=== PATIENT | female | born 1935 | race Caucasian/White ===

== ENCOUNTER → 2023-07-26 16:20 | Outpatient (REF) | payer MEDICARE, OTHER, SELFPAY ==
[2023-07-26 15:55] LABS: % Basophils 0.3 % (0-2); % Eosinophils 2.1 % (0-6); % Immature Granulocytes 0.5 % (0-0.5); % Lymphocytes 37.5 % (20.5-51.1); % Monocytes 10.2 % (1.7-9.3); % Neutrophils 49.4 % (42.2-75.2); Absolute Eosinophils 0.1 10^3/uL (0-0.7); Absolute Lymphocytes 2.5 10^3/uL (1.2-3.4); Absolute Monocytes 0.7 10^3/uL (0.1-0.6); Absolute Neutrophils 3.3 10^3/uL (1.4-6.5); Hemoglobin 8.5 g/dL (12.0-16.0); Mean Corp Hgb Conc. 32.7 g/dL (33.0-37.0); Mean Corpuscular Volume 97.7 fL (81.0-99.0); Mean Platelet Volume 9.5 fL (7.4-10.4); Nucleated Red Blood Cells % 0 %; Platelet Count 302 10^3/uL (130-400); Red Blood Cell Count 2.66 10^6/uL (4.20-5.40); Red Cell Dist. Width 16.7 % (11.5-14.5); White Blood Cell Count 6.6 10^3/uL (4.8-10.8)
[2023-07-26 16:08] LABS: Chloride 106 mmol/L (98-107); Sodium 137 mmol/L (135-145)
[2023-07-26 16:09] LABS: ALT (SGPT) 15 U/L (0-35); AST (SGOT) 24 U/L (14-36); Albumin 4.1 g/dl (3.5-5.0); Alkaline Phosphatase 92 U/L (38-126); Blood Urea Nitrogen 25 mg/dl (7-17); Calcium 9.4 mg/dl (8.4-10.2); Carbon Dioxide 20 mmol/L (22-30); Glucose 88 mg/dl (70-99); Iron 88 ug/dl (37-170); Total Bilirubin 0.6 mg/dl (0.2-1.3); Total Protein 8.6 g/dl (6.3-8.2); eGFR 39.31
[2023-07-26 16:18] LABS: Percent Saturation 29 % (20-50); Total Iron Binding Capacity 295 ug/dl (265-497)
[2023-07-28 19:23] LABS: Beta-2-Microglobulin 6.6 mg/L (<=3.0)
[2023-07-30 01:44] LABS: Albumin 4.12 g/dL (3.75-5.01); Alpha 1 Globulin 0.37 g/dL (0.19-0.46); Alpha 2 Globulin 0.88 g/dL (0.48-1.05); Free Kappa Light Chains,Quant 254.46 mg/L (3.30-19.40); Free Lambda Light Chains,Quant 13.27 mg/L (5.71-26.30); IgA 38 mg/dL (68-408); IgG 2722 mg/dL (768-1632); IgM 17 mg/dL (35-263); Immunofixation Electrophoresis IFE Done; Kappa/Lambda Fr Light Ratio 19.18 (0.26-1.65); Monoclonal Protein 1.84 g/dL (<=0.00); Total Protein-Electrophoresis 8.2 g/dL (6.3-8.2)
== END ==
LOC: OIDL 16:20
PROVIDERS: ATTENDING PHYSICIAN Internal Medicine Hematology & Oncology
DX: D83.9 Common variable immunodeficiency, unspecified (principal); D50.9 Iron deficiency anemia, unspecified
CPT/HCPCS: 80053; 82232; 82565; 82784; 83521; 83540; 83550; 84155; 84165; 85025; 86334

== ENCOUNTER → 2023-08-17 14:41 | Outpatient (REF) | payer MEDICARE, OTHER, SELFPAY ==
[2023-08-17 15:30] LABS: % Basophils 0.4 % (0-2); % Eosinophils 1.5 % (0-6); % Immature Granulocytes 0.3 % (0-0.5); % Lymphocytes 39.1 % (20.5-51.1); % Monocytes 10.4 % (1.7-9.3); % Neutrophils 48.3 % (42.2-75.2); Absolute Eosinophils 0.1 10^3/uL (0-0.7); Absolute Lymphocytes 2.6 10^3/uL (1.2-3.4); Absolute Monocytes 0.7 10^3/uL (0.1-0.6); Absolute Neutrophils 3.2 10^3/uL (1.4-6.5); Hematocrit 28.2 % (37.0-47.0); Mean Corp Hgb Conc. 31.9 g/dL (33.0-37.0); Mean Corpuscular Hgb 32.8 pg (27.0-31.0); Mean Corpuscular Volume 102.9 fL (81.0-99.0); Mean Platelet Volume 9.6 fL (7.4-10.4); Nucleated Red Blood Cells % 0 %; Platelet Count 319 10^3/uL (130-400); Red Blood Cell Count 2.74 10^6/uL (4.20-5.40); White Blood Cell Count 6.7 10^3/uL (4.8-10.8)
[2023-08-17 15:39] LABS: ALT (SGPT) 16 U/L (0-35); AST (SGOT) 26 U/L (14-36); Albumin 4.3 g/dl (3.5-5.0); Alkaline Phosphatase 77 U/L (38-126); Blood Urea Nitrogen 31 mg/dl (7-17); Calcium 9.2 mg/dl (8.4-10.2); Carbon Dioxide 22 mmol/L (22-30); Chloride 108 mmol/L (98-107); Glucose 93 mg/dl (70-99); Potassium 4.4 mmol/L (3.5-5.1); Sodium 135 mmol/L (135-145); Total Bilirubin 0.5 mg/dl (0.2-1.3); Total Protein 8.9 g/dl (6.3-8.2); eGFR 35.96
== END ==
LOC: REG 14:41
PROVIDERS: ATTENDING PHYSICIAN Internal Medicine Hematology & Oncology; FAMILY PHYSICIAN Student in an Organized Health Care Education/Training Program
DX: D83.9 Common variable immunodeficiency, unspecified (principal); D80.1 Nonfamilial hypogammaglobulinemia; D64.9 Anemia, unspecified; C90.00 Multiple myeloma not having achieved remission; D63.1 Anemia in chronic kidney disease; D50.9 Iron deficiency anemia, unspecified; R60.9 Edema, unspecified
CPT/HCPCS: 36415; 80053; 85025

== ENCOUNTER → 2023-08-31 14:45 | Outpatient (REF) | payer MEDICARE, OTHER, SELFPAY ==
[2023-08-31 17:28] LABS: % Basophils 0.3 % (0-2); % Eosinophils 1.6 % (0-6); % Immature Granulocytes 0.5 % (0-0.5); % Lymphocytes 39.7 % (20.5-51.1); % Monocytes 9.3 % (1.7-9.3); % Neutrophils 48.6 % (42.2-75.2); Absolute Eosinophils 0.1 10^3/uL (0-0.7); Absolute Lymphocytes 2.6 10^3/uL (1.2-3.4); Absolute Monocytes 0.6 10^3/uL (0.1-0.6); Absolute Neutrophils 3.1 10^3/uL (1.4-6.5); Hematocrit 30.6 % (37.0-47.0); Hemoglobin 9.9 g/dL (12.0-16.0); Mean Corp Hgb Conc. 32.4 g/dL (33.0-37.0); Mean Corpuscular Volume 105.2 fL (81.0-99.0); Mean Platelet Volume 9.4 fL (7.4-10.4); Nucleated Red Blood Cells % 0 %; Platelet Count 361 10^3/uL (130-400); Red Blood Cell Count 2.91 10^6/uL (4.20-5.40); Red Cell Dist. Width 18.5 % (11.5-14.5); White Blood Cell Count 6.5 10^3/uL (4.8-10.8)
[2023-08-31 17:47] LABS: ALT (SGPT) 14 U/L (0-35); AST (SGOT) 24 U/L (14-36); Albumin 4.6 g/dl (3.5-5.0); Alkaline Phosphatase 80 U/L (38-126); Blood Urea Nitrogen 34 mg/dl (7-17); Calcium 9.2 mg/dl (8.4-10.2); Carbon Dioxide 22 mmol/L (22-30); Chloride 107 mmol/L (98-107); Glucose 84 mg/dl (70-99); Potassium 4.9 mmol/L (3.5-5.1); Sodium 135 mmol/L (135-145); Total Bilirubin 0.4 mg/dl (0.2-1.3); Total Protein 9.2 g/dl (6.3-8.2)
== END ==
LOC: REG 14:45
PROVIDERS: ATTENDING PHYSICIAN Internal Medicine Hematology & Oncology; FAMILY PHYSICIAN Student in an Organized Health Care Education/Training Program
DX: D83.9 Common variable immunodeficiency, unspecified (principal); D80.1 Nonfamilial hypogammaglobulinemia; D64.9 Anemia, unspecified; C90.00 Multiple myeloma not having achieved remission; D63.1 Anemia in chronic kidney disease; D50.9 Iron deficiency anemia, unspecified; R60.9 Edema, unspecified
CPT/HCPCS: 36415; 80053; 85025

== ENCOUNTER → 2023-09-02 12:09 | Outpatient (REF) | payer MEDICARE, OTHER, SELFPAY | LOC: REG 12:09 | PROVIDERS: ATTENDING PHYSICIAN Student in an Organized Health Care Education/Training Program | DX: R19.7 Diarrhea, unspecified (principal); Z86.19 Personal history of other infectious and parasitic diseases | CPT/HCPCS: 87324; 87449 ==

== ENCOUNTER 2023-09-03 20:20 | Inpatient (IN) | payer MEDICARE, OTHER, SELFPAY ==
[2023-09-03 17:49] VITALS: BMI 25.7
[2023-09-03 17:50] VITALS: BP 173/80
[2023-09-03 18:00] VITALS: BP 169/68
[2023-09-03 18:08] LABS: % Basophils 0.5 % (0-2); % Eosinophils 1.5 % (0-6); % Immature Granulocytes 0.5 % (0-0.5); % Lymphocytes 38.2 % (20.5-51.1); % Monocytes 8.5 % (1.7-9.3); % Neutrophils 50.8 % (42.2-75.2); Absolute Eosinophils 0.1 10^3/uL (0-0.7); Absolute Lymphocytes 3.1 10^3/uL (1.2-3.4); Absolute Monocytes 0.7 10^3/uL (0.1-0.6); Absolute Neutrophils 4.1 10^3/uL (1.4-6.5); Hematocrit 28.3 % (37.0-47.0); Hemoglobin 9.1 g/dL (12.0-16.0); Mean Corp Hgb Conc. 32.2 g/dL (33.0-37.0); Mean Corpuscular Hgb 33.7 pg (27.0-31.0); Mean Corpuscular Volume 104.8 fL (81.0-99.0); Mean Platelet Volume 8.8 fL (7.4-10.4); Nucleated Red Blood Cells % 0 %; Platelet Count 286 10^3/uL (130-400); Red Cell Dist. Width 18.5 % (11.5-14.5)
[2023-09-03 18:20] LABS: ALT (SGPT) 14 U/L (0-35); AST (SGOT) 22 U/L (14-36); Albumin 4.6 g/dl (3.5-5.0); Alkaline Phosphatase 71 U/L (38-126); Blood Urea Nitrogen 38 mg/dl (7-17); Calcium 9.7 mg/dl (8.4-10.2); Carbon Dioxide 19 mmol/L (22-30); Chloride 108 mmol/L (98-107); Estimated Creatinine Clearance 22 ml/min; Glucose 112 mg/dl (70-99); Potassium 4.9 mmol/L (3.5-5.1); Sodium 133 mmol/L (135-145); Total Bilirubin 0.4 mg/dl (0.2-1.3); Total Protein 9.2 g/dl (6.3-8.2); eGFR 35.96
[2023-09-03 18:29] LABS: INR 1.29; PT 15.9 Sec (11.4-14.6)
[2023-09-03 18:31] LABS: APTT 27.7 Sec (23.4-35.0)
[2023-09-03] MEDS: MORPHINE SULFATE 2 MG IV ×2 (18:54→21:43)
--- NOTE | 2023-09-03 18:56 | ED.GENMED ---
History of Present Illness
General
Chief Complaint: Fall
Source: patient and ambulance crew
Exam Limitations: none
Time Seen by Provider: 09/03/23 17:41
Travel History
Have you had any contact with someone who has COVID-19?: No
Do you have any symptoms of coronavirus? Fever > 100 degrees, chills, cough, shortness of breath, sore throat, loss of taste or smell, muscle aches, or headache?: No
History of Present Illness
History of Present Illness:
88-year-old female presents with a fall. She states she had a mechanical fall and fell to the right side. Patient states she sort of fell out of her car. She denies head injury or neck pain. No back pain. EMS reports that shortened right lower
extremity. Patient is on Eliquis
Past History
Past History
ED Past Medical History: Arrthythmia, Cancer (Multiple myeloma), HTN and Other (Multiple myeloma, hypertension, hypothyroidism, PAF, spinal cord abscess)
ED Past Surgical History: Cardiac (Pacemaker), Orthopedic (Left hip surgery/laminectomy), Urological (Nephrectomy) and Other (Laminectomy resection of epidural abscess)
Social History
Tobacco: Non-smoker
Alcohol: None
Drug: None
Living: alone
Employment: Retired
Family History
Family History: Other (Noncontributory); Negative Diabetes, Hypertension or CAD
Phy Exam
Physical Exam
Physical Exam:
CONSTITUTIONAL Patient alert and oriented to person, place and time. Well-appearing. Vital signs reviewed.
HEAD atraumatic, normocephalic.
EYES eyelids normal to inspection, Extraocular muscles intact, Conjunctiva normal, Sclera normal.
NECK normal range of motion, Trachea midline, no jugular venous distention.
RESPIRATORY CHEST No respiratory distress noted, Chest expansion equal,.
BACK normal inspection, no obvious deformities
UPPER EXTREMITY range of motion normal, Motor strength normal, no cyanosis, no edema.
LOWER EXTREMITY unable to range her right hip. Her right lower extremity is shortened. Knee appears unaffected.
NEURO Speech normal, No focal motor deficits, Bernard coma scale 15, Memory normal, Cranial Nerves intact to screening exam.
SKIN skin warm, dry, and normal in color.
Course
Orders/Labs/Results
Orders:
Orders
09/03/23 17:51
CR Hip - RT w/wo Pel 2-3 Vw* Urgent
Comment:
Reason For Exam: fall
Include a pelvis x-ray?: Yes
09/03/23 18:00
Complete Blood Count/With Diff Urgent
Comprehensive Metabolic Panel Urgent
PTT Urgent
Prothrombin Time Urgent
09/03/23 18:14
Morphine Sulfate 2 mg .ROUTE .STK-MED ONE
09/03/23 18:50
Morphine Sulfate 2 mg IV NOW STA
Abnormal Lab Results
09/03/23
18:00
RBC 2.70 L 10^6/uL
(4.20-5.40)
Hgb 9.1 L g/dL
(12.0-16.0)
Hct 28.3 L %
(37.0-47.0)
MCV 104.8 H fL
(81.0-99.0)
MCH 33.7 H pg
(27.0-31.0)
MCHC 32.2 L g/dL
(33.0-37.0)
RDW 18.5 H %
(11.5-14.5)
Absolute Monos (auto) 0.7 H 10^3/uL
(0.1-0.6)
PT 15.9 H Sec
(11.4-14.6)
Sodium 133 L mmol/L
(135-145)
Chloride 108 H mmol/L
(98-107)
Carbon Dioxide 19 L mmol/L
(22-30)
BUN 38 H mg/dl
(7-17)
Creatinine 1.4 H mg/dL
(0.6-1.0)
Glucose 112 H mg/dl
(70-99)
Total Protein 9.2 H g/dl
(6.3-8.2)
09/03/23 18:00
09/03/23 18:00
Vital Signs
Initial and Last Documented VS:
Initial Vital Signs
Temp Pulse Resp BP Pulse Ox
97.6 F 74 16 173/80 99
09/03/23 17:50 09/03/23 17:50 09/03/23 17:50 09/03/23 17:50 09/03/23 17:50
Last Documented Vital Signs
Temp Pulse Resp BP Pulse Ox
97.6 F 74 16 173/80 99
09/03/23 17:50 09/03/23 17:50 09/03/23 17:50 09/03/23 17:50 09/03/23 17:50
MDM/Problems Addressed
MDM/Problems Addressed:
Hip fracture, therapeutic coagulopathy
*Radiology
Radiology exam reviewed: preliminary read by ED provider (Subtroch fracture on the right)
*Pulse Oximetry
Patient hypoxic: no
*Critical Care Note
Total Time (30-74mins, 75-104mins- exclusive of procedures): Not Applicable
Data Reviewed
Source: patient and ambulance crew
Further Testing Considered But Not Given:
Consider head CT but no evidence of head trauma
Patient Management
Discussion with other providers: Hospitalist and Club Attendant (Orthopedics)
Escalation/DeEscalation of care consider admission/obs:
88-year-old with a right hip fracture. Is anticoagulated. Admit.
ED Attending Note
-
Portions of this chart may have been created with voice recognition software.� Occasional wrong word or��sound alike� substitutions may have occurred due to the inherent limitations of voice recognition software.
Discharge Plan
Departure
Patient Disposition: Admit
Date of Disposition: 09/03/23
Time of Disposition: 18:59
Admit to: Med/Surg
Presentation/result/management discussed w/ accepting MD/DO: Hospitalist
Discharge Problem:
Closed hip fracture
Prescriptions:
No Action
amlodipine 5 mg tablet
5 mg PO DAILY
levothyroxine 125 mcg tablet
125 mcg PO DAILY@0700
vitamin A-vitamin C-vit E-min Tablet
1 tab PO QPM
Eliquis 2.5 mg tablet
2.5 mg PO BID
oxycodone 5 mg Tablet
5 mg PO Q6HPRN PRN (Reason: severe pain)
potassium chloride [Klor-Con 10] 10 mEq tablet extended release
10 meq PO BID Qty: 14 0RF
magnesium oxide 400 mg (241.3 mg magnesium) tablet
400 mg PO DAILY Qty: 7 0RF
miconazole nitrate [Miconazorb AF] 2 % Powder
1 applic topical BID Qty: 85 0RF
oseltamivir 30 mg Capsule
30 mg PO DAILY Qty: 8 0RF
Rx Instructions:
Take for 8 more days, starting on June 19, 2023
levofloxacin 750 mg tablet
750 mg PO Q48H Qty: 2 0RF
furosemide 40 mg tablet
40 mg PO DAILY PRN (Reason: Weight gain) Qty: 20 0RF
sertraline 50 mg Tablet
50 mg PO DAILY Qty: 30 0RF
cholecalciferol (vitamin D3) 50 mcg (2,000 unit) Capsule
50 mcg PO DAILY Qty: 30 0RF
Hold Instructions: Resume on 07/02/23. Check with your primary care physician if you should continue or discontinue this medication.
metoprolol tartrate 50 MG tablet
50 mg PO BID Qty: 60 0RF
calcitriol 0.25 MCG capsule
0.25 mcg PO DAILY Qty: 30 0RF
Referrals:
Renetta Johansen MD [Family Provider] -
Interventions
Interventions:
*Risk Screen - Suicide Last Done: 09/03/23 17:53
*General Assessment Last Done: 09/03/23 17:51
*Neglect/Abuse Screening Last Done: 09/03/23 17:53
*ED COVID-19 Vaccine History Last Done: 09/03/23 17:51
ED-Musculoskeletal Assessment Last Done: 09/03/23 17:53
ED- Neurological Assessment Last Done: 09/03/23 17:53
ED-Skin Assessment Last Done: 09/03/23 17:53
Discharge Date and Time
Print Language: ANGUILLAN
[2023-09-03] MEDS: MORPHINE SULFATE 4 MG IV (19:24)
[2023-09-03 19:27] VITALS: BP 154/65
--- NOTE | 2023-09-03 19:31 | EDRN ---
report received, patient in xray, once back Dr. Robb goes over results and Dr. Venegas comes in to admit patient.
[2023-09-03 20:00] VITALS: BP 132/63
--- NOTE | 2023-09-03 20:14 | HPS.HSE ---
Family Physician
-
Family Physician: Renetta Johansen MD
Chief Complaint
-
Fall / R Hip Pain
History of Present Illness
Patient is an 88y F with PMH significant for PA-Fib, CHFpEF, hypertension and hypothyroidism who presents to ED complaining of right hip pain s/p fall at home. History obtained from patient and family at the bedside.
Patient was getting out of a car with a drink in each hand when she lost her balance and fell to the ground. She denies striking her head or any LOC. She denies any prodrome of chest pain, palpitations, etc. She states that she has been feeling
fairly well of late. Family was able to help the patient up initially. However, she complained of significant pain in the R leg / hip / knee areas and was noted to have internally rotated R ankle. She was brought to the ED for further evaluation
and treatment where she is noted to have displaced fracture of the proximal femoral shaft.
Patient is chronically on low-dose Eliquis for stroke risk reduction. She notes that her last dose was taken this AM - 09/03/23.
Patient was last hospitalized here in May with influenza A. She was treated with Tamiflu as well as Levaquin.
She unfortunately developed CDiff which was treated with Dificid. She contracted COVID-19 infection in July and then developed R zoster ophthalmicus in July.
Patient was briefly treated with PO doxycycline for the shingles for possible secondary cellulitis - this was stopped after 2-3 days.
She did have some loose, malodorous stools after oral abx therapy. CDiff test was done as an outpatient yesterday (here) and was negative.
Medical History
Past Medical History
Past Medical History: Reports Other
Additional Past Medical History:
Smoldering Multiple Myeloma
Hypertension
Hypothyroidism
Paroxysmal Atrial Fibrillation
Chronic HFpEF
Epidural Abscess Lumbar Spine
Renal Cell Carcinoma
CKD III
Anemia of Chronic Disease
Past Surgical History: Reports Other
Additional Past Surgical History:
Pacemaker Placement
Left Femur ORIF
Lumbar Laminectomy / I&D Abscess
Right Nephrectomy
T&A
Tubal Ligation
Appendectomy
Social History
Tobacco: Non-smoker
Alcohol: None
Drug: None
Family History
Family History: Not pertinent
Allergies / Home Medications
Allergies reflects when Allergies were last updated in [facility].
Home Medications with original date entered in [facility]
Allergy/Medication List:
Allergies
Allergy/AdvReac Type Severity Reaction Status Date / Time
aspirin [Aspirin] Allergy UPSETS Verified 06/14/23 12:37
STOMACH
iodine Allergy Itching Verified 06/14/23 12:37
oxycodone Allergy Vomiting Verified 06/14/23 12:37
Sulfa (Sulfonamide Allergy Rash Verified 06/14/23 12:37
Antibiotics)
Home Medications
metoprolol tartrate 50 mg tablet 50 mg PO BID #60 tabs 01/02/22
amlodipine 5 mg tablet 5 mg PO DAILY Blood Pressure 04/28/23
apixaban 2.5 mg tablet (Eliquis) 2.5 mg PO BID atrial fibrillation 04/28/23
sertraline 50 mg tablet 100 mg PO DAILY mental health 09/03/23
Review of Systems
-
History Source: Patient and Family
A 12 point ROS was completed and negative except as noted: Yes
Constitutional: Reports Fatigue; Denies Fever or Chills
EENT: Denies Sore Throat
Respiratory: Denies Cough or Trouble Breathing
Cardiac: Denies Chest Pain or Palpitations
Abdomen/GI: Reports Diarrhea; Denies Abdominal Pain, Nausea or Vomiting
: Denies Dysuria, Frequency or Flank Pain
Musculoskeletal: Reports Joint Pain; Denies Edema
Neurological: Denies Dizzy or Headache
Psych: Denies Depression or Anxiety
Physical Exam
Vital Signs
Vital Signs
Temp Pulse Resp BP Pulse Ox
97.6 F 74 16 173/80 99
09/03/23 17:50 09/03/23 17:50 09/03/23 17:50 09/03/23 17:50 09/03/23 17:50
Physical Exam
General: Other (88y F in moderate distress due to pain.)
HEENT: Moist mucous membranes, PERRLA and Other (Evidence of resolving R ophthalmic zoster. No active lesions.)
Respiratory: Clear and Other (Decreased at bases - otherwise clear.)
Cardiac: S1/S2 and Regular Rhythm; No Murmur
GI: Soft, Non Tender, Non Distended and Normal Bowel Sounds
Musculoskeletal: No Clubbing, No Cyanosis and Other (RLE shortened and internally rotated.)
Neuro: AO x 3
Laboratory Results
-
09/03/23 18:00
09/03/23 18:00
Laboratory Results
PT 15.9 Sec (11.4-14.6) H 09/03/23 18:00
INR 1.29 09/03/23 18:00
APTT 27.7 Sec (23.4-35.0) 09/03/23 18:00
Total Bilirubin 0.4 mg/dl (0.2-1.3) 09/03/23 18:00
AST 22 U/L (14-36) 09/03/23 18:00
ALT 14 U/L (0-35) 09/03/23 18:00
Alkaline Phosphatase 71 U/L (38-126) 09/03/23 18:00
Impression/Plan
-
A/P: Patient is an 88y F with PMH significant for A-Fib, CHF, CKD and hypertension who presents to ED complaining of RLE pain s/p fall at home.
Right Femur Fracture
- Admit for further evaluation and treatment.
- Significant fracture of the proximal femur with displacement.
- Immobilize / bedrest overnight.
- Pain control / supportive care.
- NPO after midnight for tentative OR in the AM.
- Patient with no personal history of MA, CVA, etc.
- No prior adverse effects / complications from anesthesia or prior surgeries.
- Patient is at increased risk for complications relating to her advanced age and medical comorbidities.
- However, benefits of planned procedure outweigh the potential risks and patient is OK to proceed to OR without additional pre-op evaluation(s).
- Cardiovascular status appears well-compensated at present - follow closely perioperatively (see below).
- Post-op PT / OT, pain control, etc.
Fall at Home
Chronic Gait Dysfunction
- No suspicious prodrome to the fall.
- Family notes that patient has chronic difficulty with gait and requires assistance with standing from seated position and uses walker for ambulation.
- She stood with both hands holding drinks and did not wait for assistance and fell outside of the vehicle.
- No other significant injury appreciated.
- No head injury, LOC, etc.
- PT / OT post-op as noted above.
Paroxysmal Atrial Fibrillation
- Stable. Currently in A-paced rhythm.
- On low-dose Eliquis for stroke risk reduction - will hold for now given need for surgery.
- Monitor on telemetry.
- Cardiology evaluation.
Chronic HFpEF
- Stable. Had a degree of volume overload during prior admission for influenza pneumonia, etc.
- Not on chronic diuretic therapy. Exam not suggestive of volume overload.
- Last Echo was 2021 and showed normal LVEF.
- Follow daily weights, I/Os, etc.
- Dose Lasix PRN.
Benign Hypertension
- BP somewhat elevated at present. Likely secondary to acute pain.
- Continue usual BP medications with holding parameters.
- Pursue adequate pain control.
CKD III
- Stable. Renal function is at / near known baseline.
- Follow for changes during stay.
Macrocytic Anemia of Chronic Disease
Smoldering Myeloma
- Stable. Hgb = 9.1 is at / near known baseline.
- No reports of recent bleeding, etc.
- Follow H&H perioperatively and consider transfusion if needed.
- Check B12, etc.
- WBC is normal.
- Follow for changes in cell counts.
Zoster Ophthalmicus
- Improving. Mild erythema in R V1 distribution. No active lesions.
- Observe off of any further antimicrobials.
- Consider gabapentin, etc if pain or itching is an issue.
Diarrhea
- Some loose stools recently after brief course of oral doxycycline.
- Patient states that this is improving.
- CDiff done 09/01 was negative.
- Monitor for changes in bowel habits.
DVT Prophylaxis: SCDs for now. Post-Op per Ortho.
Code Status: Full
[2023-09-03 21:00] VITALS: BP 143/80; BMI 25.1
--- NOTE | 2023-09-03 21:30 | PTCARENOTE ---
Pt arrived to floor via stretcher from the ED. Pt UNALAKLEET, AAOx3. Pt reports having Macular degeneration with difficulty seeing. HR in the 60's, Pacemaker in place, NSR with V pacing on the monitor. POX 100% on Ra. Lungs clear. + bowel, round abd. Pt
reports stress inc, brief applied. Palpable peripheral pulses present. Right upper leg pain. Pt nauseous and dry heaving post movement, pain medication/Anti nausea medication administered as ordered, see MAR. Right AC int in place. Right elbow skin
tear/ ecchymosis noted. Scattered ecchymosis B/L UE/LE. Pale skin t/o. Pt with some redness post shingles on head. Pt repositioned per comfort. 2 daughters updated at bedside. Call doherty in reach. Will continue to monitor.
[2023-09-03 21:39] LABS: Iron 100 ug/dl (37-170)
[2023-09-03] MEDS: LOPRESSOR 50 MG PO (21:42)
[2023-09-03] MEDS: ZOFRAN 4 MG IV (21:43)
[2023-09-03] MEDS: TYLENOL 1000 MG PO (21:43)
[2023-09-03 21:48] LABS: Percent Saturation 31 % (20-50); Total Iron Binding Capacity 319 ug/dl (265-497)
[2023-09-03 22:37] LABS: Vitamin B12 329 pg/ml (239-931)
[2023-09-03 23:10] VITALS: BP 115/58
[2023-09-04] VITALS (12 sets, daily range): BP systolic 91–142; BP diastolic 44–88; PULSE 70; O2SAT 97; BMI 25.1
[2023-09-04] MEDS: MORPHINE SULFATE 2 MG IV (01:47)
--- NOTE | 2023-09-04 06:24 | PTCARENOTE ---
Pt with no urine output overnight. Pt reports no urge to void. Bladder Scan provided, 330ml at this time. Pt reports having retention issues in the past. No further intervention needed at this time. Pain medication administered overnight as needed.
Limited mobility with right leg, very painful with movement. Knee high seq in place. NSR with A pacing on the monitor. Will continue to monitor.
--- NOTE | 2023-09-04 06:58 | W.PN.UPDATE ---
Addendum entered and electronically signed by Nazario Staples MD 09/04/23 12:32:
I evaluated the patient at bedside
88-year-old female with a history of left subtrochanteric femur fracture treated with ORIF in 2019 presents after sustaining a trip and fall getting out of the car 1 day ago. She landed on the right side and had inability to weight-bear. She
denies loss of consciousness. She is being treated for multiple myeloma.
On exam, the patient's leg is shortened externally rotated. She is intact motor distally. There is ecchymosis about the soft tissue about the proximal thigh.
X-rays of the right hip show signs of a displaced subtrochanteric femur fracture. 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
Assessment plan:
88-year-old female with displaced subtrochanteric femur fracture sustained after a fall 1 day ago. I discussed treatment options with the patient including nonoperative and operative treatment. Based on the morbidity of nonoperative treatment, we
discussed surgical treatment of the ORIF with cephalomedullary nail. This would be similar to what she underwent on the left. We discussed the benefits of surgery would be mobilization, pain control, and less bleeding from the fracture. Shared
decision was to proceed with right femur fracture ORIF. Discussed the risks of surgery including infection, hardware complication, need for further surgery, pain, blood clot, cardiopulmonary complications from anesthesia.
Warren Staples MD
Original Note:
Update Note
Progress Note Update
Full orthopedic consult dictated:
Dx: Right hip subtrochanteric fracture
Plan: Dr. Staples plans on fixing right hip fracture this morning. She will remain n.p.o. and Ancef on-call to operating room. Surgical/blood consent signed by patient. Surgical location marked. Urgent type and screen ordered this morning.
[2023-09-04 07:12] LABS: Hematocrit 22.4 % (37.0-47.0); Mean Corp Hgb Conc. 31.7 g/dL (33.0-37.0); Mean Corpuscular Volume 107.2 fL (81.0-99.0); Mean Platelet Volume 9.4 fL (7.4-10.4); Platelet Count 258 10^3/uL (130-400); Red Blood Cell Count 2.09 10^6/uL (4.20-5.40); Red Cell Dist. Width 18.4 % (11.5-14.5); White Blood Cell Count 6.9 10^3/uL (4.8-10.8)
--- NOTE | 2023-09-04 07:17 | W.PN.HOSP.TC ---
Today's Communication/Plan
-
monitor H&H, K, renal function
cont IVF support
lokelma once
pain control
prophylactic abx as per orthopedic
Nephro, Hematology eval
Assessment / Plan
Assessment / Plan
Physical Exam
General: Sedated Lethargic but arousable
HEENT: Moist mucous membranes, resolving R ophthalmic zoster. No active lesions
Respiratory: Clear to auscultation b/l
Cardiac: S1/S2 and Regular Rhythm; No Murmur
GI: Soft, Non Tender, Non Distended and Normal Bowel Sounds
Musculoskeletal: No Clubbing, No Cyanosis, right hip surgical wound dressing clean dry intact
Neuro: AO x 3
A/P: Patient is an 88y F with PMH significant for A-Fib, CHF, CKD and hypertension who presents to ED complaining of RLE pain s/p fall at home.
Fall at Home
Chronic Gait Dysfunction
Right Femur Fracture
Orthopedic eval appreciated s/p ORIF nail fixation 09/03
-WBAT
-PT/OT
-Ancef 24 hrs
-Home Eliquis to resume Evening 09/04
Paroxysmal Atrial Fibrillation
- Currently NSR
- Eliquis on hold for now jh-procedure, to resume as above per orthopedic
- Monitor on telemetry.
Chronic HFpEF
- appears Euvolemic at this time, not on scheduled diuretics at home
-cont Metoprolol with holding parameter
-daily weights, I/O
Benign Hypertension
- cont home antihypertensives Amlodipine Metoprolol w/ holding parameters
JAMAAL on CKD III
Hyperkalemia
-Progressive Cr elevation initial Cr 1.4 since increased to 2.3 post-procedure
-cont IVF support
-hyperkalemia high 6.1 improved to 5.2 w/o intervention (no significant EKG changes noted)
-once lokelma 09/03
-Nephro eval
Macrocytic Anemia
Hx Myeloma
- Hgb drop from 9.1 to 7.1 possibly dilutional
-received 2PRBC transfusion during right hip fx ORIF above
-follow up AM post-transfusion response, goal Hgb 8
-Hematology Eval
Zoster Ophthalmicus
- Improving. Mild erythema in R V1 distribution. No active lesions.
- Observe off of any further antimicrobials.
- Consider gabapentin, etc if pain or itching is an issue.
Diarrhea
- Some loose stools recently after brief course of oral doxycycline.
- reportedly improving
- CDiff done 09/01 was negative.
- Monitor for changes in bowel habits.
DVT Prophylaxis: SCDs
Code Status: Full
discussed with patient's family at bedside.
I spent a total of 60 minutes with the patient or on the floor. More than 50% of this time involved counseling and coordination of care.
Anticipated Discharge: > 48 hours
Subjective/Interval History
-
Date of Service: September 04, 2023
Seen and examined at bedside s/p ORIF Right hip fracture. Patient lethargic but arousable. Appears comfortable at this time. Family Daughter Sabrina, Son Manuel, and [id number] present during evaluation.
Objective Data
-
Labs:
Laboratory Results
09/04/23
06:22
WBC Pending
Hgb Pending
Hct Pending
Plt Count Pending
Sodium Pending
Potassium Pending
Chloride Pending
Carbon Dioxide Pending
BUN Pending
Creatinine Pending
Glucose Pending
Calcium Pending
Vital Signs:
Vital Signs
Temp Pulse Resp BP Pulse Ox
97.7 F 64 18 91/44 96
09/04/23 03:00 09/04/23 03:00 09/04/23 03:00 09/04/23 03:00 09/04/23 03:00
I&O
09/03/23 09/04/23 09/05/23
06:59 06:59 06:59
Intake Total 480 / 480
Balance 480 / 480
[2023-09-04 07:37] LABS: Blood Urea Nitrogen 42 mg/dl (7-17); Calcium 8.9 mg/dl (8.4-10.2); Carbon Dioxide 19 mmol/L (22-30); Chloride 108 mmol/L (98-107); Estimated Creatinine Clearance 14 ml/min; Glucose 115 mg/dl (70-99); Sodium 133 mmol/L (135-145); eGFR 24.93
[2023-09-04 08:05] LABS: Hemoglobin 7.1 g/dL (12.0-16.0)
[2023-09-04] MEDS: ANCEF 5 IV ×2 (09:10→17:41)
[2023-09-04 09:29] LABS: Potassium 6.1 mmol/L (3.5-5.1)
--- NOTE | 2023-09-04 11:30 | OR.RPT ---
Operative Report
Operative Report
Orthopaedic Surgery Operative Note
DATE OF OPERATION: 09/04/2023
PREOPERATIVE DIAGNOSIS: Subtrochanteric Hip Fracture, Right
POSTOPERATIVE DIAGNOSIS: Same
OPERATION PERFORMED: Right subtrochanteric hip fracture open reduction and internal fixation with cephalomedulary nail
SURGEON: Nazario Staples MD
ENGINE SETTER: NA
ANESTHESIA: General
COMPLICATIONS: None.
ESTIMATED BLOOD LOSS: 200 mL.
DRAINS: None
SPECIMEN: None
FLUIDS: 2u PRBCs
IMPLANTS:
? [employer] Gamma Cephalomeduallary nail; 360 mm by 10 mm
? Corine lag screw, 90 mm.
? 5.0 mm distal interlocking screw x2
INDICATIONS FOR PROCEDURE
88F presented to the ED after a fall getting out of the car. Xrays showed right subtrochanteric femur fracture. I discussed treatment options with the patient including nonoperative and operative treatments. We reviewed the natural history of the
problem, as well as the risks, benefits, and alternatives of various treatment options. Shared decision was to proceed with surgical treatment. The patient and family understood the risks including, but were not limited to, bleeding, infection,
failure to relieve pain, more pain than preop, damage to blood vessels and nerves, need for reoperation, mechanical failure of the implants, wound healing problems, stiffness, instability, blood clot, pulmonary embolism, myocardial infarction,
pneumonia, arrhythmia, CVA, and . All questions were answered, and informed consent was obtained.
PROCEDURE IN DETAIL: The patient was identified in the preoperative holding area. The operative limb was identified as the operative site and marked with my initials. The patient was transferred to the operating room. General anesthesia was
performed. The patient was transferred to the [facility] operative table. IV antibiotics and tranexamic acid were given. All bony prominences were well padded. The operative limb was prepped and draped in the usual sterile fashion.
We performed a surgical time-out. A 1.6mm (0.65��) yossi wire was placed in the distal femur, and traction bow was applied. This was well padded over the knee. 15lbs of skeletal traction was applied. The fracture was reduced with the aid of
flouroscopy. A lateral incision was made, and a bone hook and coliner clamp were used to aid reduction. The guide wire was placed over the medial aspect of the tip of the greater trochanter. The guide wire was advanced and checked for appropriate
position on AP and lateral. The pin guide wire was advanced to the level of the lesser trochanter. Incision was made about the wire. The opening reamer was used to open the starting point over the guide wire. A ball-tipped guide wire was advanced to
the distal femur. Length was measured to be 375mm. The femoral canal was sequentially reamed with the fracture reduced starting with a 9.5mm reamer up to 11.5mm. The nail was then inserted over the guidewire down to the appropriate depth. The guide
wire was removed. The targeting guide was assembled, and a lateral incision was made for lag screw placement. A guide pin was advanced into the femoral head. Position was checked on AP and lateral. The length was measured to be 97.5mm. The drill was
set to the appropriate depth, and the lag screw path was drilled over the guide wire. It was noted upon removal of the drill that a small piece of the distal guide pin had broken. It was lodged in the metaphyseal bone of proximal femur. Attempts
were made to dislodge and remove, but the tip was well fixed in the bone. Decision was made not to perform large osteotomy to retreive due to the moribidity of that outweighting potential harm of retained metal tip. The lag screw was then inserted
into the femoral head just distal to the subchondral bone over a new guidewire. The locking screw was then placed into the top of the nail. Skeletal traction was removed, and two distal interlocking screw were placed with perfect yocha dehe technique.
Final fluoroscopy shots were performed which showed appropriate position and length of the implant and anatomic reduction of the fracture.
The incisions were copiously irrigated with 3L of normal saline. The deep fascial layers were closed with 0 PDS. The dermal layer closed with 2-0 PDS running. The skin was closed with 3-0 monocryl. Skin glue was applied as well as sterile dressings.
The patient was awoken from anesthesia without complication.
The patient awoke from anesthesia without difficulty. Sponge and instrument counts were correct x2 at the end of the case.
I was present and participated in the entire procedure. The patient was sent to the recovery room in stable condition.
Post operative plan:
� WBAT
� PT/OT
� Pain control
� Delirium prevention
� ABX: Ancef x24 hours
� DVT: ASA 325 daily
Warren Staples MD
[2023-09-04 11:37] LABS: Glucose - Point of Care 139 mg/dl (70-99)
[2023-09-04] MEDS: SUBLIMAZE 25 MCG IV (11:45)
--- NOTE | 2023-09-04 12:24 | CM ---
Met with dgtr Sabrina Olivia and dgtr in [place] while patient was in PACU post surgery for femur fracture repair.
Dr. Staples ORIMei with gamma nail surgery today. WBAT on R LE.
Patient was living in her one level home with dgtr Shea staying with her. She was using rolling walker or one person assist to ambulate.
She has rolling walker, cane, w/c and life alert.
Pharmacy: [facility] [address]
PCP :Dr. Renetta Obrien.
Discussed post acute care rehab options.
Sabrina and [place] interested in SNf referrals to [facility], [facility] in [facility]. Both feel patient would benefit from going from snf to assisted living and will explore those options. Discussed ratings for
SNF at [employer], correction compare.
Referrals sent in care port with PAS attached to SNFs.
PLAN: SNF rehab.
[2023-09-04 14:09] LABS: Glucose - Point of Care 115 mg/dl (70-99)
[2023-09-04] MEDS: NORVASC 5 MG PO (15:03)
[2023-09-04] MEDS: LOPRESSOR 50 MG PO ×2 (15:04→20:59)
[2023-09-04] MEDS: ZOLOFT 100 MG PO (15:04)
[2023-09-04] MEDS: TYLENOL PO (15:10)
[2023-09-04] MEDS: LOKELMA 5 GRAM PO (15:10)
[2023-09-04] MEDS: NSS 1000 IV ×2 (15:11→21:02)
[2023-09-04] MEDS: TYLENOL 1000 MG PO ×2 (15:12→21:00)
[2023-09-04] MEDS: ULTRAM 50 MG PO (16:00)
--- NOTE | 2023-09-04 17:00 | PTCARENOTE ---
Rt ORIF To floor 1300 GA EBL 200mls bladder scan 357mls, hg 7.1 2u PRBC intra-op, K+ 6.1 (tx'd) intra-op. bernadette BS at 1400 (115). RAC 20 80mls NSS bed low,call doherty in reach, family at side. 420mls straight cath, 400 scanned
[2023-09-04 17:16] LABS: Blood Urea Nitrogen 43 mg/dl (7-17); Calcium 8.8 mg/dl (8.4-10.2); Carbon Dioxide 15 mmol/L (22-30); Chloride 107 mmol/L (98-107); Estimated Creatinine Clearance 12 ml/min; Glucose 165 mg/dl (70-99); Potassium 5.2 mmol/L (3.5-5.1); Sodium 135 mmol/L (135-145); eGFR 19.82
[2023-09-04] MEDS: COLACE 100 MG PO (20:59)
[2023-09-04] MEDS: SENOKOT 17.1999999999999993 MG PO (20:59)
[2023-09-05] VITALS (10 sets, daily range): BP systolic 94–130; BP diastolic 51–84; PULSE 69; O2SAT 94; BMI 24.9
[2023-09-05] MEDS: ANCEF 5 IV (00:07)
[2023-09-05] MEDS: DILAUDID 0.25 MG IV (03:18)
--- NOTE | 2023-09-05 06:34 | W.PN.HOSP.TC ---
Today's Communication/Plan
-
Transfuse for goal Hgb 7.5 as per hematology
Bicarb gtt as per Nephrology
Monitor renal function, H&H
Wound Care
PT/OT
Cont bowel Regimen
Assessment / Plan
Assessment / Plan
Physical Exam
General: No acute distress appears comfortable at rest
HEENT: Moist mucous membranes, resolving R ophthalmic zoster. No active lesions
Respiratory: Clear to auscultation b/l
Cardiac: S1/S2 and Regular Rhythm; No Murmur
GI: Soft, Non Tender, Non Distended and Normal Bowel Sounds
Musculoskeletal: No Clubbing, No Cyanosis, right hip surgical wound dressing clean dry intact
Neuro: AO x 3
A/P: Patient is an 88y F with PMH significant for A-Fib, CHF, CKD and hypertension who presents to ED complaining of RLE pain s/p fall at home.
Fall at Home
Chronic Gait Dysfunction
Right Femur Fracture
Orthopedic eval appreciated s/p ORIF nail fixation 09/03
-WBAT
-PT/OT appreciated SNF rehab
-Ancef 24 hrs
-Home Eliquis to resume Evening 09/04
Paroxysmal Atrial Fibrillation
- Currently NSR
- Eliquis to resume as above
- Monitor on telemetry.
Chronic HFpEF
- appears Euvolemic at this time, not on scheduled diuretics at home
-cont Metoprolol with holding parameter
-daily weights, I/O
Benign Hypertension
- cont home antihypertensives Amlodipine Metoprolol w/ holding parameters
JAMAAL on CKD III
Hyperkalemia
Metabolic acidosis
-Progressive Cr elevation initial Cr 1.4 since increased to 2.3 post-procedure
-cont IVF support
-hyperkalemia high 6.1 improved to 5.2 w/o intervention (no significant EKG changes noted)
-once lokelma 09/03
-Nephro eval appreciated IVF continued with bicarb gtt
Macrocytic Anemia
Hx Myeloma
- Hgb drop from 9.1 to 7.1 possibly dilutional
-received 2PRBC transfusion during right hip fx ORIF above
-Hematology Eval appreciated transfusing for goal hgb 7.5, 3rd PRBC transfused 09/04, MM panel repeated
Zoster Ophthalmicus
- Improving. Mild erythema in R V1 distribution. No active lesions.
- Observe off of any further antimicrobials.
- Consider gabapentin, etc if pain or itching is an issue.
Diarrhea
- Some loose stools recently after brief course of oral doxycycline.
- reportedly improving
- CDiff done 09/01 was negative.
- Appears resolved at this time
Constipation
cont bowel regimen
Macular Edema
-worsening vision, overdue for outpatient injection by weeks due to health problems
-Discussed with Ophthalmology foundation coordinator, Ophthalmology no longer seeing inpatients at this facility, outpatient follow up recommended
DVT Prophylaxis: SCDs
Code Status: Full
discussed with patient and her son Harrison.
I spent a total of 60 minutes with the patient or on the floor. More than 50% of this time involved counseling and coordination of care.
Anticipated Discharge: 24 - 48 hours
Subjective/Interval History
-
Date of Service: September 05, 2023
Pain controlled at rest. Tolerating diet. Reports constipation.
Objective Data
-
Labs:
Laboratory Results
09/05/23
06:00
WBC Pending
Hgb Pending
Hct Pending
Plt Count Pending
Sodium Pending
Potassium Pending
Chloride Pending
Carbon Dioxide Pending
BUN Pending
Creatinine Pending
Glucose Pending
Calcium Pending
Vital Signs:
Vital Signs
Temp Pulse Resp BP Pulse Ox
97.6 F 71 16 117/84 99
09/05/23 03:00 09/05/23 03:00 09/05/23 03:00 09/05/23 03:00 09/05/23 03:00
I&O
09/03/23 09/04/23 09/05/23
06:59 06:59 06:59
Intake Total 480 / 480 750 / 750
Output Total 420 / 420
Balance 480 / 480 330 / 330
--- NOTE | 2023-09-05 06:55 | W.PN.ORTHO ---
Today's Communication / Plan
-
PT/OT
Eliquis for DVT prophylaxis
Weightbearing as tolerated
[facility] facility once medically stable
Follow-up orthopedic office 2 weeks postop
Assessment
.
Distal Motor Intact: Yes
Dressing:
Clean, dry and intact.
Plan
.
DVT Prophylaxis: Other (Eliquis)
Activity:
Out of bed.
PT/OT
Discharge Plan: SNF
Subjective
.
.:
Patient resting comfortably.
Vital Signs and Labs
.
Vital Signs and Labs:
Temp Pulse Resp BP Pulse Ox
97.6 F 71 16 117/84 99
09/05/23 03:00 09/05/23 03:00 09/05/23 03:00 09/05/23 03:00 09/05/23 03:00
PT 15.9 Sec (11.4-14.6) H 09/03/23 18:00
INR 1.29 09/03/23 18:00
[2023-09-05 07:32] LABS: Hemoglobin 7.3 g/dL (12.0-16.0); Mean Corp Hgb Conc. 34.8 g/dL (33.0-37.0); Mean Corpuscular Hgb 33.6 pg (27.0-31.0); Mean Corpuscular Volume 96.8 fL (81.0-99.0); Red Blood Cell Count 2.17 10^6/uL (4.20-5.40); Red Cell Dist. Width 17.4 % (11.5-14.5); White Blood Cell Count 6.5 10^3/uL (4.8-10.8)
[2023-09-05 08:10] LABS: Blood Urea Nitrogen 44 mg/dl (7-17); Calcium 7.9 mg/dl (8.4-10.2); Chloride 109 mmol/L (98-107); Estimated Creatinine Clearance 14 ml/min; Glucose 109 mg/dl (70-99); Magnesium 1.6 mg/dl (1.6-2.3); Phosphorus 5.5 mg/dl (2.5-4.5); Sodium 132 mmol/L (135-145); eGFR 23.44
[2023-09-05 08:35] LABS: Carbon Dioxide 15 mmol/L (22-30)
[2023-09-05] MEDS: TYLENOL 1000 MG PO ×3 (08:40→23:11)
[2023-09-05] MEDS: ZOLOFT 100 MG PO (08:40)
[2023-09-05] MEDS: COLACE PO (08:44)
[2023-09-05] MEDS: NORVASC PO (08:44)
[2023-09-05] MEDS: SENOKOT PO (08:44)
[2023-09-05] MEDS: LOPRESSOR 50 MG PO ×2 (08:44→20:04)
[2023-09-05] MEDS: NSS 1000 IV (08:48)
--- NOTE | 2023-09-05 09:20 | CON.ONC ---
Impression
Impression
- femur fracture
- acute on chronic anemia
- acute on chronic renal injury
- IgG kappa MM with progression
- Afib on DOAC
Plan
Plan
- although pt with known progression of her underlying MM acute drop in hgb and rise in Cr not related to multiple myeloma and suspect more related to acute issues with fall, fracture.
- new macrocytosis may be senior sales representative of reticulocytosis in the setting of recently restarting epo agonist, occult bleed also possibility as hgb already showed a drop earlier this week from 9.9 g/dl on 08/30 to 9.0 g/dl on 09/02 then 7.0 on 09/03. Hgb
7.3 g/dl today after getting 2 units in OR. Ordered additional unit today to optimize organ perfusion as pt with prior CHF exacerbations aggregated by anemia.
- check B12, iron studies, retic count, hemolysis panel. check stool hemoccult
- Eliquis 2.5 mg to be resumed this evening. With no obvious bleeding signs or symptoms agree with resuming mega after ortho procedure however monitor closely for bleeding.
- CBC daily. transfuse for hgb < 7.5 g/dl.
- underlying MM with slow progression. Repeating MM panel now. pt has been poor candidate to resume disease targeting therapy with multiple other medical issues, mostly infections over last year. Continued supportive care with aranesp in the office.
FOllow up with Dr Crowell as scheduled.
Patient History
History of Present Illness
Chelsea is an 88y F with PMH significant for IgG kappa multiple myeloma, PA-Fib on eliquis, CHFpEF, hypertension and hypothyroidism who presented to ED complaining of right hip pain s/p fall at home. Imaging revealed a displaced fracture of the
proximal femoral shaft. She went to OR for orthopedics on 09/03 for ORIF. Hematology being consulted for hx of multiple myeloma not on treatment with worsening anemia, JAMAAL.
Chelsea follows with Dr. Crowell for hx of IgG kappa multiple myeloma diagnosed over a decade ago for within she was initially treated with induction RVD then on years of maintenance Revlimid. She had slow progression with worsening renal function,
anemia and was started on second line therapy with Daratumumab in October 2020 until October 2021 which was stopped due to infectious complications including paraspinal abscess. She has received supportive care through the years with epo agonists, IVIG.
She recently resumed Aranesp in the office in July for worsening anemia, last dose 09/02. Cr outpt has been stable in 1.3-1.7 range, hgb in 9-10 g/dl range. ON admission hgb was 9.1 with drop to 7.1 yesterday am prior to surgery. hgb today is 7.3
after receiving 2 units intra-op. pt also with Jamaal with rise in Cr from 1.5 on 08/30 to 2.3 on presentation, 2.0 today. Serial MM panels have shown gradual uptrend in kappa, IgG levels. Most recent in Jul showed M spike 1.84, kappa 254. She and Dr
Socrates have discussed disease progression however due to age and multiple infectious complications tx felt to be more harmful then helpful and supportive measures continued with ongoing discussion of restarting Daratumumab if/when hgb improved,
stable from infection standpoint.
Past-Medical/Surgical History
IgG kappa Multiple Myeloma
Hypertension
Hypothyroidism
Paroxysmal Atrial Fibrillation
Chronic HFpEF
Epidural Abscess Lumbar Spine
Renal Cell Carcinoma
CKD III
Anemia of Chronic Disease
Patient Medication
�Medication �Instructions �Recorded �Confirmed �Last Taken �Type
metoprolol tartrate 50 mg tablet 50 mg PO BID #60 tabs 01/02/22 09/03/23 09/03/23 Rx
amlodipine 5 mg tablet 5 mg PO DAILY Blood Pressure 04/28/23 09/03/23 09/03/23 History
apixaban 2.5 mg tablet (Eliquis) 2.5 mg PO BID atrial fibrillation 04/28/23 09/03/23 09/03/23 History
sertraline 50 mg tablet 100 mg PO DAILY mental health 09/03/23 09/03/23 09/03/23 History
erythromycin 0.5 % RIGHT EYE 2XD 09/04/23 09/04/23 09/03/23 20:00 History
gabapentin 100 mg PO 3XD PRN not scheduled 09/04/23 09/04/23 09/02/23 20:00 History
100 mg
Active Medications
Generic Name Dose Route Start Last Admin
Trade Name Freq PRN Reason Stop Dose Admin
Acetaminophen 1,000 mg 09/03/23 22:00 09/05/23 08:40
Acetaminophen 500 Mg Tablet PO 10/01/23 21:59 1,000 mg
TID AMARI Administration
Acetaminophen 650 mg 09/04/23 08:26
Acetaminophen 325 Mg Tablet PO 10/02/23 08:25
Q4HPRN PRN
headache, temp >101F
Al Hydrox/Mg Hydrox/Simethicone 30 ml 09/04/23 08:15
Mag/Al/Simethicone Suspension 30 Ml Cup PO 10/02/23 08:14
Q4HPRN PRN
indigestion
Amlodipine Besylate 5 mg 09/04/23 08:00 09/05/23 08:44
Amlodipine 5 Mg Tablet PO 10/02/23 07:59 Not Given
DAILY AMARI
Apixaban 2.5 mg 09/05/23 20:00
Apixaban (Eliquis) 2.5 Mg Tablet PO 10/03/23 19:59
BID AMARI
Docusate Sodium 100 mg 09/04/23 20:00 09/05/23 08:44
Docusate Sodium 100 Mg Capsule PO 10/02/23 19:59 Not Given
BID AMARI
Fentanyl Citrate 50 mcg 09/04/23 11:34
Fentanyl (50 Mcg/Ml) 100 Mcg/2 Ml Ampul IV 09/05/23 11:34
PACU-Q5MPRN PRN
severe pain
Fentanyl Citrate 25 mcg 09/04/23 11:34 09/04/23 11:45
Fentanyl (50 Mcg/Ml) 100 Mcg/2 Ml Ampul IV 09/05/23 11:34 25 mcg
PACU-Q5MPRN PRN Administration
moderate pain
Hydromorphone HCl 0.25 mg 09/04/23 08:26 09/05/23 03:18
Hydromorphone 0.25 Mg/0.5 Ml Syringe IV 09/18/23 08:25 0.25 mg
Q3HPRN PRN Administration
severe pain
Sodium Chloride 1,000 mls @ 80 mls/hr 09/04/23 09:15 09/05/23 08:48
Nss IV 1,000 mls
[id number] AMARI Administration
Sodium Chloride 1,000 mls @ 100 mls/hr 09/04/23 11:45
Nss IV 09/05/23 11:35
PER PROTOCOL AMARI
Magnesium Hydroxide 30 ml 09/04/23 08:31
Milk Of Magnesia 30 Ml Cup PO 10/02/23 08:30
[id number] PRN
constipation
Meperidine HCl 12.5 mg 09/04/23 11:34
Meperidine 25 Mg/Ml Injection IV 09/05/23 11:34
PACU-Q5MPRN PRN
shivers
Metoprolol Tartrate 50 mg 09/03/23 20:58 09/05/23 08:44
Metoprolol 50 Mg Regular Release Tablet PO 10/01/23 20:57 50 mg
BID AMARI Administration
Ondansetron HCl 4 mg 09/03/23 21:20 09/03/23 21:43
Ondansetron 4 Mg/2 Ml Vial IV 10/01/23 21:19 4 mg
Q6HPRN PRN Administration
NAUSEA/VOMITING
Ondansetron HCl 4 mg 09/04/23 11:34
Ondansetron 4 Mg/2 Ml Vial IV 09/05/23 11:34
PACU-ONCEPRN PRN
nausea/vomiting
Sennosides 17.2 mg 09/04/23 20:00 09/05/23 08:44
Sennosides (Senokot) 8.6 Mg Tablet PO 10/02/23 19:59 Not Given
BID AMARI
Sertraline HCl 100 mg 09/04/23 08:00 09/05/23 08:40
Sertraline 50 Mg Tablet PO 10/02/23 07:59 100 mg
DAILY AMARI Administration
Sodium Chloride 0 flush 09/03/23 22:00
Sodium Chloride 0.9% (Flush) Syringe IV 10/01/23 21:59
PER PROTOCOL AMARI
Tramadol HCl 50 mg 09/03/23 20:58 09/04/23 16:00
Tramadol Hcl 50 Mg Tablet PO 10/01/23 20:57 50 mg
[id number] PRN Administration
moderate pain
Review of Systems
-
History Source: Patient
Constitutional: Denies Fever
Respiratory: Denies Cough or Trouble Breathing
Cardiac: Denies Chest Pain
GI: Denies Nausea
Musculoskeletal: Reports Joint Pain and Muscle Pain
Neuro: Denies Dizzy, Headache, Weakness or Numbness
Hematologic/Lymphatic: Denies Bleeding
Physical Exam
-
General: Well Developed, Well Nourished and No Apparent Distress
HEENT: Negative Jaundice
Cardiology: Normal Sinus Rhythm; Negative Murmur
Pulmonary: Clear
Musculoskeletal: Edema, Right Lower Extrem (swelling of upper right thigh, no ecchymosis, active bleeding at incision site. dressing C/D/I)
Neurology: Non Focal and No Lateralizing Symptoms
Hematologic / Lymphatic: No Lymphadenopathy
Labs
Lab Results
WBC 6.5 10^3/uL (4.8-10.8) 09/05/23 06:52
RBC 2.17 10^6/uL (4.20-5.40) L 09/05/23 06:52
Hgb 7.3 g/dL (12.0-16.0) L 09/05/23 06:52
Hct 21.0 % (37.0-47.0) L 09/05/23 06:52
MCV 96.8 fL (81.0-99.0) D 09/05/23 06:52
MCH 33.6 pg (27.0-31.0) H 09/05/23 06:52
MCHC 34.8 g/dL (33.0-37.0) 09/05/23 06:52
RDW 17.4 % (11.5-14.5) H 09/05/23 06:52
Plt Count 258 10^3/uL (130-400) 09/04/23 06:22
MPV 9.4 fL (7.4-10.4) 09/04/23 06:22
Abs Immat Gran (auto) 0.0 10^3/uL (0-0.05) 09/03/23 18:00
Absolute Neuts (auto) 4.1 10^3/uL (1.4-6.5) 09/03/23 18:00
Absolute Lymphs (auto) 3.1 10^3/uL (1.2-3.4) 09/03/23 18:00
Absolute Monos (auto) 0.7 10^3/uL (0.1-0.6) H 09/03/23 18:00
Absolute Eos (auto) 0.1 10^3/uL (0-0.7) 09/03/23 18:00
Absolute Basos (auto) 0.0 10^3/uL (0-0.2) 09/03/23 18:00
Immature Gran % 0.5 % (0-0.5) 09/03/23 18:00
Neutrophils % 50.8 % (42.2-75.2) 09/03/23 18:00
Lymphocytes % 38.2 % (20.5-51.1) 09/03/23 18:00
Monocytes % 8.5 % (1.7-9.3) 09/03/23 18:00
Eosinophils % 1.5 % (0-6) 09/03/23 18:00
Basophils % 0.5 % (0-2) 09/03/23 18:00
Creatinine 2.0 mg/dL (0.6-1.0) H 09/05/23 06:52
Vital Signs
Vital Signs
Temp Pulse Resp BP Pulse Ox
97.6 F 63 16 110/70 96
09/05/23 07:08 09/05/23 07:08 09/05/23 07:08 09/05/23 08:44 09/05/23 07:08
[2023-09-05 09:44] LABS: Reticulocyte Count 2.6 % (0.4-2.8)
[2023-09-05 10:09] LABS: Iron 166 ug/dl (37-170); LDH 232 U/L (120-246); Total Bilirubin 0.3 mg/dl (0.2-1.3)
[2023-09-05 10:18] LABS: Percent Saturation 66 % (20-50); Total Iron Binding Capacity 250 ug/dl (265-497)
[2023-09-05 10:26] LABS: Mean Platelet Volume 9.6 fL (7.4-10.4); Platelet Count 152 10^3/uL (130-400)
[2023-09-05 10:59] LABS: Vitamin B12 298 pg/ml (239-931)
[2023-09-05 11:19] LABS: Hematocrit 21.7 % (37.0-47.0); Hemoglobin 7.3 g/dL (12.0-16.0)
--- NOTE | 2023-09-05 14:16 | W.CON.NEPH ---
Addendum entered and electronically signed by Clementine Boles MD 09/05/23 20:51:
paraprotein w.u sent per heme with h/o MM
Original Note:
Consultation
-
Date/Time Consultation Requested: 09/04/23 1830
Date/Time Consultation Performed: 09/05/23 1430
Requesting Provider: Ap Mcrae
Performing Provider: Clementine Bustillos
Reason for Consultation: JAMAAL with CKD
Medical History
-
Chief Complaint: fall, right hip pain
History of Present Illness:
Patient is an 88y F with PMH significant for PA-Fib on Eliquis, CHFpEF, hypertension on Amlodipine, BB, h/o MM ,RCC right nephrectomy CKD3 , renal cell cancer, chr anemia, and hypothyroidism who presents to ED complaining of right hip pain s/p
fall at home on 09/02. She was brought to the ED for further evaluation and treatment where she is noted to have displaced fracture of the proximal femoral shaft. She underwent ORIF on 09/03. Since admit her cr
Patient is chronically on low-dose Eliquis for stroke risk reduction. She notes that her last dose was taken this AM - 09/03/23.Since admit her cr increased from baseline 1.4 to 2.3 on 09/03, also with persistent hyperkalemia nephrology consulted.she
also has worsening anemia to 7.3, cr better at 2 today. She offer no diarrhea today, no cp or sob. No abd pain or n/v. She has mild U retention had SC once last night. Improving right zoster ophthalmicus.
Past Medical History
IgG kappa Multiple Myeloma
Hypertension
Hypothyroidism
Paroxysmal Atrial Fibrillation
Chronic HFpEF
Epidural Abscess Lumbar Spine
Renal Cell Carcinoma
CKD III
Anemia of Chronic Disease
Past Surgical History: Other (Pacemaker Placement Left Femur ORIF Lumbar Laminectomy / I&D Abscess Right Nephrectomy T&A Tubal Ligation Appendectomy)
Social History
Tobacco: Non-Smoker
Alcohol: None
Drug: None
Family History
Family History: Not Pertinent
Allergies / Home Medications
Allergy/AdvReac Type Severity Reaction Status Date / Time
aspirin [Aspirin] Allergy UPSETS Verified 06/14/23 12:37
STOMACH
iodine Allergy Itching Verified 06/14/23 12:37
oxycodone Allergy Vomiting Verified 06/14/23 12:37
Sulfa (Sulfonamide Allergy Rash Verified 06/14/23 12:37
Antibiotics)
�Medication �Instructions �Recorded �Confirmed �Type
metoprolol tartrate 50 mg tablet 50 mg PO BID #60 tabs 01/02/22 09/03/23 Rx
amlodipine 5 mg tablet 5 mg PO DAILY Blood Pressure 04/28/23 09/03/23 History
apixaban 2.5 mg tablet (Eliquis) 2.5 mg PO BID atrial fibrillation 04/28/23 09/03/23 History
sertraline 50 mg tablet 100 mg PO DAILY mental health 09/03/23 09/03/23 History
erythromycin 0.5 % RIGHT EYE 2XD 09/04/23 09/04/23 History
gabapentin 100 mg PO 3XD PRN not scheduled 09/04/23 09/04/23 History
Review of Systems
-
All complete 12point ROS inquired and found negative other than stated in HPI
Physical Exam
Vital Signs
Vital Signs
Temp Pulse Resp BP Pulse Ox
97.8 F 60 16 116/73 96
09/05/23 12:13 09/05/23 12:13 09/05/23 12:13 09/05/23 12:13 09/05/23 11:23
Lab Results
WBC 6.5 10^3/uL (4.8-10.8) 09/05/23 06:52
RBC 2.17 10^6/uL (4.20-5.40) L 09/05/23 06:52
Hgb Cancelled 09/05/23 11:00
Hct Cancelled 09/05/23 11:00
Plt Count 152 10^3/uL (130-400) D 09/05/23 06:52
Sodium 132 mmol/L (135-145) L 09/05/23 06:52
Potassium 5.0 mmol/L (3.5-5.1) 09/05/23 06:52
Chloride 109 mmol/L (98-107) H 09/05/23 06:52
Carbon Dioxide 15 mmol/L (22-30) L 09/05/23 06:52
BUN 44 mg/dl (7-17) H 09/05/23 06:52
Creatinine 2.0 mg/dL (0.6-1.0) H 09/05/23 06:52
eGFR 23.44 09/05/23 06:52
Glucose 109 mg/dl (70-99) H 09/05/23 06:52
Calcium 7.9 mg/dl (8.4-10.2) L 09/05/23 06:52
Phosphorus 5.5 mg/dl (2.5-4.5) H 09/05/23 06:52
Albumin 4.6 g/dl (3.5-5.0) 09/03/23 18:00
Physical Exam
General: Awake, Alert, Oriented, AOx3, No Distress and Nontoxic
HEENT: EOMI and Anicteric
Respiratory: Clear
Cardiac: S1/S2 and Regular Rate/Rhythm
Abdomen: Soft, Nontender and Nondistended
Musculoskeletal: No Cyanosis and No Edema
Skin: No Rash
Neuro: Nonfocal/Grossly Intact
Psych: Mood/afflect pleasant, Insight/judgement good and Appropriate
Assessment/Plan
-
IMP:
JAMAAL with CKD-baseline 1.2-1.4
Mild Gap met acidosis
Fall at Home
Chronic Gait Dysfunction
Right Femur Fracture- s/p ORIF nail fixation 09/03
Paroxysmal Atrial Fibrillation
Chronic HFpEF
Benign Hypertension
Hyperkalemia
Macrocytic Anemia
Hx Myeloma
Zoster Ophthalmicus
Diarrhea
h/o RCC right Nephrectomy
PLan:
A/w fall at home and has hip fx s/p ORIF 09/03
JAMAAL -seem hemodynamic and retention, check UA , U lytes and follow bladder scan-352cc
low threshold for rosado
prn transfusion for anemia-heme follows
BP stable
hyperkalemia resolved with Lokelma
met acidosis-will change iVF to bicarb
labs in am
d/w pt and daughter at bedside
Data Reviewed
-
Radiology: Report Reviewed by me
Labs: Labs Reviewed by me, Discussed with Patient and Discussed with Family
[2023-09-05] MEDS: SODIUM BICARBONATE 1150 MEQ IV (20:02)
[2023-09-05] MEDS: TYLENOL 650 MG PO (20:03)
[2023-09-05] MEDS: ULTRAM 50 MG PO (20:04)
[2023-09-05] MEDS: COLACE 100 MG PO (20:04)
[2023-09-05] MEDS: SENOKOT 17.1999999999999993 MG PO (20:04)
[2023-09-05] MEDS: ELIQUIS 2.5 MG PO (20:04)
[2023-09-06] VITALS (8 sets, daily range): BP systolic 109–146; BP diastolic 55–70; PULSE 61; O2SAT 94; BMI 24.9
[2023-09-06] MEDS: DILAUDID 0.25 MG IV ×4 (03:45→20:32)
[2023-09-06 04:54] LABS: Hematocrit 24.5 % (37.0-47.0); Hemoglobin 8.4 g/dL (12.0-16.0); Mean Corp Hgb Conc. 34.3 g/dL (33.0-37.0); Mean Corpuscular Hgb 32.9 pg (27.0-31.0); Mean Corpuscular Volume 96.1 fL (81.0-99.0); Mean Platelet Volume 9.5 fL (7.4-10.4); Platelet Count 136 10^3/uL (130-400); Red Blood Cell Count 2.55 10^6/uL (4.20-5.40); Red Cell Dist. Width 17.9 % (11.5-14.5); White Blood Cell Count 6.2 10^3/uL (4.8-10.8)
[2023-09-06 05:24] LABS: Blood Urea Nitrogen 34 mg/dl (7-17); Calcium 8.4 mg/dl (8.4-10.2); Carbon Dioxide 22 mmol/L (22-30); Chloride 103 mmol/L (98-107); Estimated Creatinine Clearance 20 ml/min; Glucose 96 mg/dl (70-99); Magnesium 1.7 mg/dl (1.6-2.3); Phosphorus 3.5 mg/dl (2.5-4.5); Sodium 133 mmol/L (135-145); eGFR 35.96
--- NOTE | 2023-09-06 07:29 | W.PN.HOSP.TC ---
Today's Communication/Plan
-
Monitor anemia
Continue Vitamin B12
ID consulted for follow-up of recent Zoster Ophthalmicus - appreciate recommendations
SNF placement
Assessment / Plan
Assessment / Plan
Physical Exam
General: No acute distress appears comfortable at rest
HEENT: Moist mucous membranes, resolving R ophthalmic zoster - no active lesions
Respiratory: Clear to auscultation b/l
Cardiac: S1/S2 and Regular Rhythm
GI: Soft, Non Tender, Non Distended and Normal Bowel Sounds
Musculoskeletal: No Cyanosis, right hip surgical wound dressing clean dry intact
Neuro: AAO x 3
recent Zoster Oph Rt Eye and CDiff resolving/resolved here for Rt hip fx s/p ORIF also hyperkalemia JAMAAL progressive anemia Hematology Nephrology Orthopedic on board. Discharge planning SNF rehab.
A/P: Patient is an 88y F with PMH significant for A-Fib, CHF, CKD and hypertension who presents to ED complaining of RLE pain s/p fall at home.
Fall at Home
Chronic Gait Dysfunction
Right Femur Fracture
Orthopedic eval appreciated s/p ORIF nail fixation 09/03
-WBAT
-PT/OT appreciated SNF rehab
-Ancef 24 hrs
-Home Eliquis to resume Evening 09/04
Concern for Constipation
-Check abdominal x-ray
Paroxysmal Atrial Fibrillation
- Currently NSR
- Continue renally-dosed Eliquis
- Monitor on telemetry.
Chronic HFpEF
- appears Euvolemic at this time, not on scheduled diuretics at home
-cont Metoprolol with holding parameter
-daily weights, I/O
Benign Hypertension
- cont home antihypertensives Amlodipine Metoprolol w/ holding parameters
JAMAAL - RESOLVED - on CKD III
Hyperkalemia - RESOLVED
Metabolic acidosis - IMPROVED
-Progressive Cr elevation initial Cr 1.4 since increased to 2.3 post-procedure then decreased back to baseline 1.4
-cont IVF support
-hyperkalemia high 6.1 improved to 5.2 w/o intervention (no significant EKG changes noted)
-once lokelma 09/03 with improvement in potassium
-Follow bladder scan, low threshold for Benson catheter
-Nephro eval appreciated
Macrocytic Anemia
Hx Myeloma
Vitamin B12 on the lower side @ 298
- Hgb drop from 9.1 to 7.1 possibly dilutional
-received 2PRBC transfusion during right hip fx ORIF above
-Hematology Eval appreciated transfusing for goal hgb 7.5, 3rd PRBC transfused 09/04, MM panel repeated
-Hgb has since improved significantly
-Tranfuse for Hgb<7.5 g/dL
Zoster Ophthalmicus
- Improving. Had mild erythema in R V1 distribution. No active lesions.
- Patient is noted to not have any acute eye issues (redness, pain) or facial vesicular rash at this time
- Consider gabapentin, etc if pain or itching is an issue.
- Discussed with ophthalmology who said that they don�t do inpatient consult any longer, that her two her chronic injections with Dr. Muller can be done in his office (we never do those in the hospital)
- Consulted ID, recommendations appreciated, i.e. question about any need for antivirals at this point in time
History of Hypothyroidism
Diarrhea
- Some loose stools recently after brief course of oral doxycycline.
- reportedly improving
- CDiff done 09/01 was negative.
- Appears resolved at this time
Constipation
-Continue bowel regimen: Senokot and Colace
-Add Miralax
-Check abdominal x-ray
Macular Edema
-worsening vision, overdue for outpatient injection by weeks due to health problems
-Discussed with Ophthalmology training personnel supervisor, Ophthalmology no longer seeing inpatients at this facility, outpatient follow up recommended
DVT Prophylaxis: SCDs
Code Status: Full
I discussed case with patient and her daughters today.
Anticipated Discharge: 24 - 48 hours
Subjective/Interval History
-
Date of Service: September 06, 2023
Patient was seen and examined. She denied any significant pain when not moving, but reported that she has not had a bowel movement in several days.
Objective Data
-
Labs:
Laboratory Results
09/06/23
04:23
WBC 6.2
Hgb 8.4 L
Hct 24.5 L
Plt Count 136
Sodium 133 L
Potassium 4.0
Chloride 103
Carbon Dioxide 22
BUN 34 H
Creatinine 1.4 H
Glucose 96
Calcium 8.4
Vital Signs:
Vital Signs
Temp Pulse Resp BP Pulse Ox
98.4 F 62 20 109/64 96
09/06/23 03:57 09/06/23 03:57 09/06/23 03:57 09/06/23 03:57 09/06/23 03:57
I&O
09/05/23 09/06/23 09/07/23
06:59 06:59 06:59
Intake Total 750 / 750 2990 / 2990
Output Total 420 / 420 850 / 850
Balance 330 / 330 2140 / 2140
[2023-09-06] MEDS: ZOLOFT 100 MG PO (08:53)
[2023-09-06] MEDS: TYLENOL 1000 MG PO ×3 (08:53→20:27)
[2023-09-06] MEDS: COLACE 100 MG PO ×2 (08:54→20:27)
[2023-09-06] MEDS: ELIQUIS 2.5 MG PO ×2 (08:54→20:27)
[2023-09-06] MEDS: SENOKOT 17.1999999999999993 MG PO ×2 (08:54→20:27)
[2023-09-06] MEDS: NORVASC 5 MG PO (08:57)
[2023-09-06] MEDS: LOPRESSOR 50 MG PO ×2 (08:57→20:28)
--- NOTE | 2023-09-06 09:48 | W.PN.UPDATE ---
Update Note
Progress Note Update
Ms. Desir is POD2 following her right hip gamma nail performed by Dr. Staples. She is resting comfortably in bed this morning. She reports her pain has improved slightly with time. She was able to work with physical therapy yesterday, but
reports this was difficulty due to pain with them supporting her around her ribs.
Directed exam fo the right lower extremity reveals surgical dressings clean, dry and intact. Mild tenderness to palpation about the anterior and lateral hip. Thigh soft and compressible. Calf soft and nontender. Patient able to wiggle toes, plantar
and dorsiflex ankle. Neurovascularly intact distally.
Hgb 8.4 this AM.
88 yo F POD2 right hip gamma nail under the direction of Dr. Staples
--Continue WBAT with assistive device. We appreciate the assistance of PT/OT.
--Eliquis for DVT ppx.
--Continue pain management per primary. Ice and elevation for edema control.
--Hgb 8.4 this AM. Continue to monitor.
--Case management consult for discharge planning.
--Follow up 2 weeks post-op for wound check and repeat x-rays.
--Patient stable post-operatively from an orthopedic standpoint. Orthopedics will sign off for now. Please reach out with any additional orthopedic questions or concerns.
--- NOTE | 2023-09-06 12:40 | W.PN.ONC ---
Today's Communication / Plan
-
Her B12 level is on the low side at 298. Will check a methylmalonic acid. However, no downside to repeating with B12 for the time being.
Impression
Impression
- femur fracture
- acute on chronic anemia
- acute on chronic renal injury
- IgG kappa MM with progression
- Afib on DOAC
Plan
Plan
- although pt with known progression of her underlying MM acute drop in hgb and rise in Cr not related to multiple myeloma and suspect more related to acute issues with fall, fracture.
- new macrocytosis may be regional sales representative of reticulocytosis in the setting of recently restarting epo agonist, occult bleed also possibility as hgb already showed a drop earlier this week from 9.9 g/dl on 08/30 to 9.0 g/dl on 09/02 then 7.0 on 09/03. Hgb
7.3 g/dl today after getting 2 units in OR. Ordered additional unit today to optimize organ perfusion as pt with prior CHF exacerbations aggregated by anemia.
- check B12, iron studies, retic count, hemolysis panel. check stool hemoccult
- Eliquis 2.5 mg to be resumed this evening. With no obvious bleeding signs or symptoms agree with resuming mega after ortho procedure however monitor closely for bleeding.
- CBC daily. transfuse for hgb < 7.5 g/dl.
- underlying MM with slow progression. Repeating MM panel now. pt has been poor candidate to resume disease targeting therapy with multiple other medical issues, mostly infections over last year. Continued supportive care with aranesp in the office.
FOllow up with Dr Crowell as scheduled.
Subjective/Objective
Subjective/Objective
She is feeling reasonably well. She is beginning to gain some mobility following the surgery. Examination is unchanged.
Vital Signs:
Vital Signs
Temp Pulse Resp BP Pulse Ox
98.5 F 68 16 118/61 93
09/06/23 12:26 09/06/23 12:26 09/06/23 12:26 09/06/23 12:26 09/06/23 12:26
Lab Results:
Laboratory Data
WBC 6.2 10^3/uL (4.8-10.8) 09/06/23 04:23
Hgb 8.4 g/dL (12.0-16.0) L 09/06/23 04:23
Plt Count 136 10^3/uL (130-400) 09/06/23 04:23
PT 15.9 Sec (11.4-14.6) H 09/03/23 18:00
INR 1.29 09/03/23 18:00
APTT 27.7 Sec (23.4-35.0) 09/03/23 18:00
eGFR 35.96 09/06/23 04:23
Orders
Orders
Orders From Last 24 Hours
09/06/23 12:25
Methylmalonic Acid [S] Routine
09/07/23 08:00
Cyanocobalamin 1,000 mcg IM DAILY
--- NOTE | 2023-09-06 13:01 | W.PN.NEPH.PH ---
Today's Communication / Plan
-
- Cr back to baseline
- off fluids
Assessment/Plan
-
IMP:
JAMAAL with CKD-baseline 1.2-1.4
Mild Gap met acidosis
Fall at Home
Chronic Gait Dysfunction
Right Femur Fracture- s/p ORIF nail fixation 09/03
Paroxysmal Atrial Fibrillation
Chronic HFpEF
Benign Hypertension
Hyperkalemia
Macrocytic Anemia
Hx Myeloma
Zoster Ophthalmicus
Diarrhea
h/o RCC right Nephrectomy
PLan:
A/w fall at home and has hip fx s/p ORIF 09/03
JAMAAL -already back to baseline of 1.4 (eren 2.3)
follow bladder scan-352cc, low threshold for rosado
prn transfusion for anemia-heme follows
BP stable
hyperkalemia resolved with Lokelma
Met acidosis - improved after fluids with bicarb. now off
paraprotein workup sent
labs in am. if stable/improved likely d/c will sign off
d/w pt and daughter at bedside
-
-
Date of Service: September 06, 2023
CC / HPI / ROS
-
Chief Complaint:
JAMAAL
History of Present Illness:
peak Cr 2.3, improved back to baseline of 1.4 today
hyperK, resolved
Review of Systems:
feels okay today
tired
Labs
-
Labs:
WBC 6.2 10^3/uL (4.8-10.8) 09/06/23 04:23
RBC 2.55 10^6/uL (4.20-5.40) L 09/06/23 04:23
Hgb 8.4 g/dL (12.0-16.0) L 09/06/23 04:23
Hct 24.5 % (37.0-47.0) L 09/06/23 04:23
Plt Count 136 10^3/uL (130-400) 09/06/23 04:23
Sodium 133 mmol/L (135-145) L 09/06/23 04:23
Potassium 4.0 mmol/L (3.5-5.1) 09/06/23 04:23
Chloride 103 mmol/L (98-107) 09/06/23 04:23
Carbon Dioxide 22 mmol/L (22-30) 09/06/23 04:23
BUN 34 mg/dl (7-17) H 09/06/23 04:23
Creatinine 1.4 mg/dL (0.6-1.0) H 09/06/23 04:23
eGFR 35.96 09/06/23 04:23
Glucose 96 mg/dl (70-99) 09/06/23 04:23
Calcium 8.4 mg/dl (8.4-10.2) 09/06/23 04:23
Phosphorus 3.5 mg/dl (2.5-4.5) 09/06/23 04:23
Albumin 4.6 g/dl (3.5-5.0) 09/03/23 18:00
Physical Exam
-
Vital Signs:
Vital Signs
Temp Pulse Resp BP Pulse Ox
98.5 F 68 16 118/61 93
09/06/23 12:26 09/06/23 12:26 09/06/23 12:26 09/06/23 12:26 09/06/23 12:26
Cardiovascular:: Regular rate and rhythm
Respiratory:: Bilateral: Coarse
Lung Excursion:: Normal
Abdomen:: Nontender and Soft
Bowel Sounds:: Normal
Extremity Edema:: None: Bilateral:
Rosado Catheter: No
[2023-09-06] MEDS: MILK OF MAGNESIA 30 ML PO (13:11)
[2023-09-06] MEDS: ULTRAM 50 MG PO (13:27)
[2023-09-06] MEDS: MIRALAX 17 GRAMS PO (13:27)
[2023-09-06 14:50] LABS: Haptoglobin 130 mg/dL (30-200)
--- NOTE | 2023-09-06 15:52 | CON.ID ---
Consultation
-
Date/Time Consultation Requested: 09/06/23 12:25
Date/Time Consultation Performed: 09/06/23 16:26
Requesting Provider: Dr Flaherty
Performing Provider: Dr Samano
Reason for Consultation: Recent Zoster Ophthalmicus - any antiviral needed at this time?
Chief Complaint / Past History
Chief Complaint
Fall / R Hip Pain
History of Present Illness
Ms Desir is an 88 year old female with history of CHF, Afib who presented here after a fall with right hip pain.
Of note with a recent history of C difficile. In several weeks ago in July with R zoster ophthalmicus - reportedly has already completed antivirals, did have 2-3 days of doxycycline for possible secondary cellulitis. Had loose stools afterwards
and c difficile was negative.
Admitted 09/02, no fevers or chills, found to have hip fracture, taken to the OR 09/03 and underwent Right subtrochanteric hip fracture open reduction and internal fixation with cephalomedulary nail, has remained afebrile, bp stable, without
leukocytosis, hgb 8.4, plt 136, Cr near her baseline of 1.4,
Past History
Additional Past Medical History:
AFib, hypertension,
hypothyroid, multiple myeloma, hypertension, epidural abscess
lumbar spine, renal cell carcinoma, chronic kidney disease stage
III, anemia, chronic.
Additional Past Surgical History:
Pacemaker, left hip ORIF by Dr. Aragon,
lumbar laminectomy by Dr. Mancini, I and D abscess, right
nephrectomy, tonsillectomy and adenectomy, tubal ligation, and
appendectomy.
Allergy History:
aspirin [Aspirin] Allergy (Verified 06/14/23 12:37)
UPSETS STOMACH
iodine Allergy (Verified 06/14/23 12:37)
Itching
oxycodone Allergy (Verified 06/14/23 12:37)
Vomiting
Sulfa (Sulfonamide Antibiotics) Allergy (Verified 06/14/23 12:37)
Rash
Medications Reviewed: Yes
Social History
Tobacco: Non-Smoker
Alcohol: None
Drug: None
Family History
Family History: Not Pertinent
Review of Systems
Review of Systems
General: Negative Fever or Chills
All systems: All other systems were reviewed and were negative
Vital Signs
Temp Pulse Resp BP Pulse Ox
98.7 F 64 16 123/55 96
09/06/23 15:15 09/06/23 15:15 09/06/23 15:15 09/06/23 15:15 09/06/23 15:15
Physical Exam
Physical Exam
Constitutional: No Acute Distress and Chronically Ill
Head: Other (no active lesions on the skin or around the eyes)
Cardiovascular: Regular Rate and S1/S2; Negative Murmur or Rub
Pulmonary: Clear and Symmetric; Negative Wheezes, Rales or Rhonchi
Gastrointestinal: Soft, Non Tender, Non Distended and Normal Bowel Sounds
Skin: Warm and Dry; Negative Rash or Jaundice
Lab / Diagnostic Study Results
09/06/23 04:23
09/06/23 04:23
Abs Immat Gran (auto) 0.0 10^3/uL (0-0.05) 09/03/23 18:00
Absolute Neuts (auto) 4.1 10^3/uL (1.4-6.5) 09/03/23 18:00
Absolute Lymphs (auto) 3.1 10^3/uL (1.2-3.4) 09/03/23 18:00
Absolute Monos (auto) 0.7 10^3/uL (0.1-0.6) H 09/03/23 18:00
Absolute Basos (auto) 0.0 10^3/uL (0-0.2) 09/03/23 18:00
Immature Gran % 0.5 % (0-0.5) 09/03/23 18:00
Neutrophils % 50.8 % (42.2-75.2) 09/03/23 18:00
Lymphocytes % 38.2 % (20.5-51.1) 09/03/23 18:00
Monocytes % 8.5 % (1.7-9.3) 09/03/23 18:00
Eosinophils % 1.5 % (0-6) 09/03/23 18:00
Basophils % 0.5 % (0-2) 09/03/23 18:00
PT 15.9 Sec (11.4-14.6) H 09/03/23 18:00
INR 1.29 09/03/23 18:00
Assessment / Plan
Recent C Difficile
- on aggressive bowel regimen post operatively, would consider limiting the total number of scheduled cathartics given recent C difficile
- avoid PPIs
- probiotics started
Resolved Zoster Ophthalmicus
- could consider restarting gabapentin
- outpatient follow up with ophthalmology is planned
ID service will no longer actively follow this patient please recall for further questions
[2023-09-06] MEDS: VISBIOME 2 CAP PO (16:57)
[2023-09-06 23:07] LABS: Free Kappa Light Chains,Quant 248.33 mg/L (3.30-19.40); Free Lambda Light Chains,Quant 9.46 mg/L (5.71-26.30); Kappa/Lambda Fr Light Ratio 26.25 (0.26-1.65)
[2023-09-07] MEDS: DILAUDID 0.25 MG IV ×2 (02:20→13:20)
[2023-09-07 03:45] VITALS: BP 146/62
[2023-09-07 05:41] VITALS: BMI 25.0
[2023-09-07 05:56] LABS: Hematocrit 25.8 % (37.0-47.0); Hemoglobin 8.6 g/dL (12.0-16.0); Mean Corp Hgb Conc. 33.3 g/dL (33.0-37.0); Mean Corpuscular Hgb 33.1 pg (27.0-31.0); Mean Corpuscular Volume 99.2 fL (81.0-99.0); Mean Platelet Volume 9.8 fL (7.4-10.4); Platelet Count 141 10^3/uL (130-400); White Blood Cell Count 6.6 10^3/uL (4.8-10.8)
[2023-09-07 06:24] LABS: Blood Urea Nitrogen 26 mg/dl (7-17); Calcium 8.1 mg/dl (8.4-10.2); Carbon Dioxide 27 mmol/L (22-30); Chloride 104 mmol/L (98-107); Estimated Creatinine Clearance 25 ml/min; Glucose 98 mg/dl (70-99); Magnesium 1.7 mg/dl (1.6-2.3); Phosphorus 2.4 mg/dl (2.5-4.5); Potassium 4.2 mmol/L (3.5-5.1); Sodium 132 mmol/L (135-145); eGFR 48.03
[2023-09-07 07:30] VITALS: BP 146/65
[2023-09-07 08:13] VITALS: BMI 25.0
[2023-09-07] MEDS: ULTRAM 50 MG PO (08:41)
[2023-09-07] MEDS: TYLENOL 1000 MG PO (08:42)
[2023-09-07] MEDS: SENOKOT 17.1999999999999993 MG PO (08:43)
[2023-09-07] MEDS: COLACE 100 MG PO (08:43)
[2023-09-07] MEDS: VISBIOME 2 CAP PO (08:43)
[2023-09-07] MEDS: LOPRESSOR 50 MG PO (08:43)
[2023-09-07] MEDS: ZOLOFT 100 MG PO (08:44)
[2023-09-07] MEDS: NORVASC 5 MG PO (08:44)
[2023-09-07] MEDS: CYANOCOBALAMIN 1000 MCG IM (08:45)
[2023-09-07] MEDS: MIRALAX 17 GRAMS PO (08:45)
[2023-09-07] MEDS: ELIQUIS 2.5 MG PO (08:47)
--- NOTE | 2023-09-07 09:34 | W.PN.HOSP.TC ---
Addendum entered and electronically signed by Jeffrey Flaherty MD 09/07/23 13:10:
More than 30 minutes spent in discharge including
Final examination of the patient
Summarizing hospital stay
Instructions for continuing care to all relevant caregivers
Preparation of discharge records, prescriptions, and referral forms
Total time spent (in minutes): 40
Original Note:
Today's Communication/Plan
-
Discharge today
Assessment / Plan
Assessment / Plan
Physical Exam
General: No acute distress appears comfortable at rest
HEENT: Moist mucous membranes, resolving R ophthalmic zoster - no active lesions
Respiratory: Clear to auscultation bilaterally
Cardiac: S1/S2 and Regular Rhythm
GI: Soft, Non Tender, Non Distended and Normal Bowel Sounds
Musculoskeletal: No Cyanosis, right hip surgical wound dressing clean dry intact
Neuro: AAO x 3

A/P: Patient is an 88y F with PMH significant for A-Fib, CHF, CKD and hypertension who presents to ED complaining of RLE pain s/p fall at home.
Fall at Home
Chronic Gait Dysfunction
Right Femur Fracture - multifactorial due to osteoporosis/Fall
Orthopedic eval appreciated s/p ORIF nail fixation 09/03
-WBAT with assistive device.
-Ice and elevation for edema control
-Pain control: Tramadol prn. Can also use high dose scheduled Tylenol.
-PT/OT appreciated SNF rehab
-Status post Ancef x24 hrs
-Continue home Eliquis for DVT prophylaxis
-Follow up in 1-2 weeks post-op for wound check and repeat x-rays.
Right Ankle Area Contusion
-X-ray showed no fracture
-Discussed with Dr. Staples (orthopedics) via [place] [facility] on [facility] 2023: not uncommon to see bruising up and down leg after femur fracture. If no foot or ankle fracture (on x-ray) then okay to discharge
Concern for Constipation
-Patient now having bowel movement as of September 07, 2023 morning
-Abdominal x-ray okay with moderate stools
Paroxysmal Atrial Fibrillation
- Currently NSR
- Continue renally-dosed Eliquis
- Monitor on telemetry.
Chronic HFpEF
- appears Euvolemic at this time, not on scheduled diuretics at home
-cont Metoprolol with holding parameter
-daily weights, I/O
Benign Hypertension
- cont home antihypertensives Amlodipine Metoprolol w/ holding parameters
JAMAAL - RESOLVED - on CKD III
Hyperkalemia - RESOLVED
Metabolic acidosis - IMPROVED after intravenous fluids with bicarbonate
Hyponatremia
-Progressive Cr elevation initial Cr 1.4 since increased to 2.3 post-procedure then decreased back to baseline 1.4 with further decrease to 1.1
-cont IVF support
-hyperkalemia high 6.1 improved to 5.2 w/o intervention (no significant EKG changes noted)
-once lokelma 09/03 with improvement in potassium
-Follow bladder scan, low threshold for Benson catheter
-Nephro eval appreciated
Acute blood loss anemia
Macrocytic Anemia
History of Myeloma
Vitamin B12 on the lower side @ 298
-Hgb dropped from 9.1 to 7.1 possibly dilutional
-Patient received 2PRBC transfusion during right hip fx ORIF above
-Hgb has since improved significantly
-Hematology Eval appreciated transfusing for goal hgb 7.5, 3rd PRBC transfused 09/04, MM panel repeated
-Tranfuse for Hgb<7.5 g/dL
-Continue Vitamin B12 on discharge
-Follow-up with Dr. Crowell in 3 to 4 weeks
Zoster Ophthalmicus
- Improving. Had mild erythema in R V1 distribution. No active lesions.
- Patient is noted to not have any acute eye issues (redness, pain) or facial vesicular rash at this time
- Consider gabapentin, etc if pain or itching is an issue.
- Discussed with ophthalmology who said that they don�t do inpatient consult any longer, that her two her chronic injections with Dr. Muller can be done in his office (we never do those in the hospital)
- Consulted ID, recommendations appreciated -- no antivirals needed at this time
- Outpatient follow up with ophthalmology is planned
History of Hypothyroidism
Diarrhea
Recent C Difficile
- on aggressive bowel regimen post operatively, consider limiting the total number of scheduled cathartics given recent C difficile
- Avoid PPIs
- probiotics started
- Some loose stools recently after brief course of oral doxycycline.
- reportedly improving
- Appears resolved at this time
Constipation
-Continue bowel regimen: Senokot and Colace as well as Miralax
-Abdominal x-ray showed a moderate amount of feces
-Patient now having bowel movement
Macular Edema
-worsening vision, overdue for outpatient injection by weeks due to health problems
-Discussed with Ophthalmology circulation librarian, Ophthalmology no longer seeing inpatients at this facility, outpatient follow up recommended
Lumbar L2 Compression Fracture
DVT Prophylaxis: Eliquis
Code Status: Full
I discussed case with patient and her daughter today.
Anticipated Discharge: Today
Subjective/Interval History
-
Date of Service: September 07, 2023
Patient was seen and examined. She reported pain in her right hip where she got her surgery as well as from the bruise around her right ankle, but otherwise denied any other significant symptoms or complaints.
Objective Data
-
Labs:
Laboratory Results
09/07/23
05:09
WBC 6.6
Hgb 8.6 L
Hct 25.8 L
Plt Count 141
Sodium 132 L
Potassium 4.2
Chloride 104
Carbon Dioxide 27
BUN 26 H
Creatinine 1.1 H
Glucose 98
Calcium 8.1 L
Vital Signs:
Vital Signs
Temp Pulse Resp BP Pulse Ox
98.5 F 67 16 146/65 93
09/07/23 07:30 09/07/23 08:44 09/07/23 07:30 09/07/23 08:44 09/07/23 08:00
I&O
09/06/23 09/07/23 09/08/23
06:59 06:59 06:59
Intake Total 2990 / 2990 1360 / 1360
Output Total 850 / 850 100 / 100
Balance 2140 / 2140 1260 / 1260
--- NOTE | 2023-09-07 10:57 | PN.CDI ---
CDI
- -
CDI:
Physician Documentation Request
Admit Date: 09/03/23 20:20
Dear Doctor Krystina,
Please review the following and provide your response in the progress notes.
Clinical Indicators:
Pt admitted with right hip fracture s/p ORIF /Pt with Multiple Myeloma
Documented per operative report ESBL 200 ml
Trended Hemoglobin/Hematocrits below did get 3 units PRBCs
Documented per oncology ,' although pt with known progression of her underlying MM acute drop in hgb and rise in Cr not related to multiple myeloma and suspect more related to acute issues with fall, fracture. new macrocytosis may be chain sales representative
of reticulocytosis in the setting of recently restarting epo agonist, occult bleed also possibility as hgb already showed a drop earlier this week from 9.9 g/dl on 08/30 to 9.0 g/dl on 09/02 then 7.0 on 09/03. Hgb 7.3 g/dl today after getting 2 units in
OR. Ordered additional unit today to optimize organ perfusion as pt with prior CHF exacerbations aggregated by anemia....'
Laboratory Tests
09/03/23 09/04/23 09/05/23
18:00 06:22 06:52
Hgb 9.1 L 7.1 L D 7.3 L
Hct 28.3 L 22.4 L 21.0 L
09/05/23 09/06/23 09/07/23
09:31 04:23 05:09
Hgb 7.3 L 8.4 L 8.6 L
Hct 21.7 L 24.5 L 25.8 L
Based on the above, could you clarify, in your progress note, which of the following is the most likely type of anemia you are evaluating, monitoring and/or treating?
Acute blood loss anemia /Anemia due to Multiple Myeloma
Anemia due to Multiple Myeloma only
Other
Use of terms such as suspected, likely, concern for, or probable (associated with a specific diagnosis that is being evaluated, monitored, or treated as if it exists) are acceptable and can be coded in the inpatient setting, when documented at the
time of discharge.
Thank you,
Wendy Chavez RN
CDI Specialist
[facility]
Please use your independent medical judgment in providing your response.
--- NOTE | 2023-09-07 11:01 | PN.CDI ---
CDI
- -
CDI:
Physician Documentation Request
Admit Date: 09/03/23 20:20
Dear Doctor Krystina,
Please review the following and provide your response in the progress notes.
Clinical Indicators:
Pt admitted with right hip fracture s/p ORIF /Pt with Multiple Myeloma
Sodium levels are as below /Did get IVFS
09/03/23 09/04/23 09/05/23
18:00 06:22 06:52
Sodium 133 L 133 L 132 L
09/06/23 09/07/23
04:23 05:09
Sodium 133 L 132 L
Based on the above, could you clarify in the progress notes, the appropriate diagnosis, if significant, that supports the above abnormalities and additional evaluation, monitoring and/or treatment rendered:
Hyponatremia
Abnormal lab value only
Other
Use of terms such as suspected, likely, concern for, or probable (associated with a specific diagnosis that is being evaluated, monitored, or treated as if it exists) are acceptable and can be coded in the inpatient setting, when documented at the
time of discharge.
Thank you,
Wendy Chavez RN
CDI Specialist
[facility]
Please use your independent medical judgment in providing your response.
--- NOTE | 2023-09-07 11:04 | PN.CDI ---
CDI
- -
CDI:
Physician Documentation Request
Admit Date: 09/03/23 20:20
Dear Doctor Krystina,
Please review the following and provide your response in the progress notes.
Clinical Indicators:
Pt admitted with right hip fracture s/p ORIF /Pt with Multiple Myeloma
Documented per ED, ' She states she had a mechanical fall and fell to the right side. Patient states she sort of fell out of her car....'
Hip Xray 09/02, ' ACUTE SUBTROCHANTERIC FRACTURE of the RIGHT PROXIMAL FEMUR with 4 cm displacement and moderate angulation of the distal fracture fragment.... Osteoporosis.....'
Please provide the suspected Etiology of right displaced subtrochanteric fracture of femur :
Multifactorial due to osteoporosis/Fall
Due to fall only
Other
Use of terms such as suspected, likely, concern for, or probable (associated with a specific diagnosis that is being evaluated, monitored, or treated as if it exists) are acceptable and can be coded in the inpatient setting, when documented at the
time of discharge.
Thank you,
Wendy Chavez RN
CDI Specialist
[facility]
Please use your independent medical judgment in providing your response.
[2023-09-07 11:46] VITALS: BP 114/78
--- NOTE | 2023-09-07 12:49 | W.PN.NEPH.PH ---
Today's Communication / Plan
-
- sign off
Assessment/Plan
-
IMP:
JAMAAL with CKD-baseline 1.2-1.4
Mild Gap met acidosis
Fall at Home
Chronic Gait Dysfunction
Right Femur Fracture- s/p ORIF nail fixation 09/03
Paroxysmal Atrial Fibrillation
Chronic HFpEF
Benign Hypertension
Hyperkalemia
Macrocytic Anemia
Hx Myeloma
Zoster Ophthalmicus
Diarrhea
h/o RCC right Nephrectomy
PLan:
A/w fall at home and has hip fx s/p ORIF 09/03
JAMAAL -already back to baseline of 1.1 (peak 2.3)
excellent urine output at this time
prn transfusion for anemia-heme follows
BP stable
hyperkalemia resolved with Lokelma
Met acidosis - improved after fluids with bicarb. now off
known multiple myeloma, k/l ratio rising to >26 at this time but per heme/onc a poor candidate for disease targeting therapy.
nephrology to sign off
likely discharge to rehab later today, will f/u with nephrology outpatient
-
-
Date of Service: September 07, 2023
CC / HPI / ROS
-
Chief Complaint:
JAMAAL
History of Present Illness:
peak Cr 2.3, improved back to baseline of 1.1 today
hyperK, resolved
Review of Systems:
feels okay today
tired
Labs
-
Labs:
WBC 6.6 10^3/uL (4.8-10.8) 09/07/23 05:09
RBC 2.60 10^6/uL (4.20-5.40) L 09/07/23 05:09
Hgb 8.6 g/dL (12.0-16.0) L 09/07/23 05:09
Hct 25.8 % (37.0-47.0) L 09/07/23 05:09
Plt Count 141 10^3/uL (130-400) 09/07/23 05:09
Sodium 132 mmol/L (135-145) L 09/07/23 05:09
Potassium 4.2 mmol/L (3.5-5.1) 09/07/23 05:09
Chloride 104 mmol/L (98-107) 09/07/23 05:09
Carbon Dioxide 27 mmol/L (22-30) 09/07/23 05:09
BUN 26 mg/dl (7-17) H 09/07/23 05:09
Creatinine 1.1 mg/dL (0.6-1.0) H 09/07/23 05:09
eGFR 48.03 09/07/23 05:09
Glucose 98 mg/dl (70-99) 09/07/23 05:09
Calcium 8.1 mg/dl (8.4-10.2) L 09/07/23 05:09
Phosphorus 2.4 mg/dl (2.5-4.5) L 09/07/23 05:09
Albumin Cancelled 09/07/23 07:08
Physical Exam
-
Vital Signs:
Vital Signs
Temp Pulse Resp BP Pulse Ox
98.4 F 64 12 114/78 93
09/07/23 11:46 09/07/23 11:46 09/07/23 11:46 09/07/23 11:46 09/07/23 11:46
Cardiovascular:: Regular rate and rhythm
Respiratory:: Bilateral: Coarse
Lung Excursion:: Normal
Abdomen:: Nontender and Soft
Bowel Sounds:: Normal
Extremity Edema:: None: Bilateral:
Benson Catheter: No
--- NOTE | 2023-09-07 12:56 | W.DS.TRANS ---
DC Summary - [employer]
-
Discharge Instructions:
Sleep Apnea Risk Intermediate
Discharge Diagnosis/Procedures Fall at Home
Chronic Gait Dysfunction
Right Femur Fracture - multifactorial due to
osteoporosis/Fall - status post ORIF nail
fixation 09/04/23
Right Ankle Area Contusion
Concern for Constipation
Paroxysmal Atrial Fibrillation
Chronic Heart Failure with Preserved Ejection
Fraction
Benign Hypertension
Acute Kidney Injury - RESOLVED - on Chronic
Kidney Disease Stage III
Hyperkalemia - RESOLVED
Metabolic acidosis - IMPROVED after intravenous
fluids with bicarbonate
Hyponatremia
Acute blood loss anemia
Macrocytic Anemia
History of Myeloma
Vitamin B12 on the lower side @ 298
Zoster Ophthalmicus
History of Hypothyroidism
Diarrhea
Recent C Difficile
Constipation
Macular Edema
Lumbar L2 Compression Fracture
Diet As tolerated
Activity Other activity
Additional Activity Weight Bearing As Tolerated with assistive
device. Ice and elevation for edema control.
Blood Work Recheck CBC, Phosphorus, Magnesium and CMP in
the next 2 to 3 days (latest by September 10, 2023)
Specialty Instructions Weigh Daily
Instructions:
Stand-Alone Forms:
Changes to Home Medications: Yes
Discharge Medications:
DC Medications w/original date entered in [id number]
metoprolol tartrate 50 mg tablet 50 mg PO BID #60 tabs 01/02/22
amlodipine 5 mg tablet 5 mg PO DAILY Blood Pressure 04/28/23
apixaban 2.5 mg tablet (Eliquis) 2.5 mg PO BID atrial fibrillation 04/28/23
sertraline 50 mg tablet 100 mg PO DAILY mental health 09/03/23
erythromycin 0.5 % RIGHT EYE 2XD 09/04/23
gabapentin 100 mg PO 3XD PRN not scheduled 09/04/23
Lactobac/Bifidobac [Visbiome] 2 cap PO DAILY #60 caps 09/07/23
acetaminophen 500 mg tablet (Tylenol Extra Strength) 1,000 mg (2 x 500 mg) PO TID #60 tabs 09/07/23
cyanocobalamin (vitamin B-12) 1,000 mcg tablet 1,000 mcg PO DAILY #30 tabs 09/07/23
docusate sodium 100 mg capsule 100 mg PO BID #60 caps 09/07/23
polyethylene glycol 3350 17 gram oral powder packet (HealthyLax) 17 g PO DAILY #30 ea 09/07/23
sennosides 8.6 mg tablet (Senna Laxative) 17.2 mg (2 x 8.6 mg) PO BID #120 tabs 09/07/23
tramadol 50 mg tablet 50 mg PO [id number] PRN severe pain #7 tabs 09/07/23
Home Medication Changes
Scheduled Tylenol, Cyanocobalamin, Docusate, Visbiome, HealthyLax, Senna and Tramadol are all new medications.
Pending Results: Yes
Additional Pending Results:
Multiple Myeloma labwork
Methymalonic Acid
Total time spent discharging patient (in min): 40
--- NOTE | 2023-09-07 13:06 | CM ---
Patient has been medically cleared for discharge to [facility] [place] for halfway and rehab services. Ambulance transport is scheduled for 3:00 PM. Patient, [id number], Team, [place] admissions notified.
NURSE TO NURSE REPORT # [phone]
FAX # [phone]
[2023-09-07] MEDS: FLUSH (NSS) 1 FLUSH IV (13:21)
[2023-09-07 14:36] VITALS: BP 148/66
--- NOTE | 2023-09-07 17:57 | W.DCSUMMARY ---
Discharge Summary
Discharge Data
Date of Admission: 09/03/23
Date of Discharge: 09/07/23
Total time spent discharging patient (in min): 40
-
Pending Results: Yes
Additional Pending Results:
Multiple Myeloma labwork
Methymalonic Acid
Hospital Course
88 y/o female who presented with right hip pain after falling at home. Patient was found to have a right femur fracture and patient had on September 04, 2023 a right subtrochanteric hip fracture open reduction and internal fixation with cephalomedullary
nail. Patient's Eliquis (which she takes for A-Fib) was resumed for DVT prophylaxis post-op. Patient was found to have hyperkalemia, metabolic acidosis and acute kidney injury, nephrology was consulted and bicarbonate intravenous fluids were
started. Patient also received Lokelma. Patient's hemoglobin dropped about 2 units post-op, therefore 3 units of blood transfusion were ordered. Hematology was consulted and paraprotein work-up was ordered. Vitamin B12 was started for Vitamin B12
level was low at 298. Infectious Disease was consulted and because of patient's recent C. diff, recommended limiting cathartics, avoid proton pump inhibitors, and starting probiotics. Patient's Zoster Ophthalmicus was noted to be resolved.
Nephrology was consulted for acute kidney injury, patient's acute kidney injury resolved with intravenous fluids.
Discharge Plan
-
Patient Disposition: Acute Rehab Facility
Discharge Diagnosis/Procedures: Fall at Home
Chronic Gait Dysfunction
Right Femur Fracture - multifactorial due to osteoporosis/Fall - status post ORIF nail fixation 09/04/23
Right Ankle Area Contusion
Concern for Constipation
Paroxysmal Atrial Fibrillation
Chronic Heart Failure with Preserved Ejection Fraction
Benign Hypertension
Acute Kidney Injury - RESOLVED - on Chronic Kidney Disease Stage III
Hyperkalemia - RESOLVED
Metabolic acidosis - IMPROVED after intravenous fluids with bicarbonate
Hyponatremia
Acute blood loss anemia
Macrocytic Anemia
History of Myeloma
Vitamin B12 on the lower side @ 298
Zoster Ophthalmicus
History of Hypothyroidism
Diarrhea
Recent C Difficile
Constipation
Macular Edema
Lumbar L2 Compression Fracture
Condition: Fair
Diet: As tolerated
Activity: Other activity
Additional Activity: Weight Bearing As Tolerated with assistive device. Ice and elevation for edema control.
Blood Work: Recheck CBC, Phosphorus, Magnesium and CMP in the next 2 to 3 days (latest by September 10, 2023)
Specialty Instructions: Weigh Daily- Call MD for wt gain/loss 3 lbs overnight/5 lbs in 1 week
Activity Restrictions/Additional Instructions:
Closely monitor patient closely for any signs or symptoms of urinary retention. Bladder scans Q6H please and low threshold for Benson Urinary Catheter.
Closely monitor and treat for any constipation - also consider limiting the total number of scheduled cathartics given recent C difficile
Consider gabapentin if pain from recent Zoster Ophthalmicus is an issue
Referrals:
Michael Crowell DO [Active] - in one to two weeks (Hospital follow-up)
Renetta Johansen MD [Family Provider] -
Reji Antunez MD [Active Community] - in less than 1 week
Nazario Staples MD [Active] - in one to two weeks (Follow-up after surgery)
Additional Discharge Medication Instructions: Scheduled Tylenol, Cyanocobalamin, Docusate, Visbiome, HealthyLax, Senna and Tramadol are all new medications.
Prescriptions:
New
docusate sodium 100 mg Capsule
100 mg PO BID Qty: 60 0RF
cyanocobalamin (vitamin B-12) 1,000 mcg tablet
1,000 mcg PO DAILY Qty: 30 1RF
polyethylene glycol 3350 [HealthyLax] 17 gram Powder In Packet
17 g PO DAILY Qty: 30 0RF
sennosides [Senna Laxative] 8.6 mg Tablet
17.2 mg PO BID Qty: 120 1RF
acetaminophen [Tylenol Extra Strength] 500 mg Tablet
1,000 mg PO TID Qty: 60 0RF
tramadol 50 mg Tablet
50 mg PO [id number] PRN (Reason: severe pain) Qty: 7 0RF
Lactobac/Bifidobac [Visbiome]
2 cap PO DAILY Qty: 60 0RF
Continued
amlodipine 5 mg tablet
5 mg PO DAILY
Eliquis 2.5 mg tablet
2.5 mg PO BID
sertraline 50 mg tablet
100 mg PO DAILY
gabapentin 100 mg capsule
100 mg PO 3XD MDD up to three times daily PRN (Reason: not scheduled)
erythromycin ointment
0.5 % RIGHT EYE 2XD
metoprolol tartrate 50 MG tablet
50 mg PO BID Qty: 60 0RF
Discharge Orders:
Discharge Patient (As Directed); Ordered 09/07/23
Ordered By: Jeffrey Flaherty
Discharge Date and Time
Discharge Date/Time: 09/07/23 15:50
Print Language: YI
[2023-09-08 17:39] LABS: Methylmalonic Acid 0.42 umol/L (0.00-0.40)
[2023-09-08 23:23] LABS: Alpha 2 Globulin 0.61 g/dL (0.48-1.05); Monoclonal Protein 1.43 g/dL (<=0.00); SPEP IFE Reflex IFE Done; Total Protein-Electrophoresis 6.6 g/dL (6.3-8.2)
[2023-09-09 07:56] LABS: IgA 31 mg/dL (68-408); IgG 1905 mg/dL (768-1632); IgM <10 mg/dL (35-263)
== END 2023-09-07 15:50 | DRG 481 ==
LOC: 2 SOUTH 20:20
PROVIDERS: Anesthesiology; Internal Medicine; Internal Medicine Hematology & Oncology; ADMITTING PHYSICIAN Hospitalist; ATTENDING PHYSICIAN Hospitalist; CONSULT PHYSICIAN Internal Medicine; CONSULT PHYSICIAN Internal Medicine Hematology & Oncology; CONSULT PHYSICIAN Orthopaedic Surgery; CONSULT PHYSICIAN Student in an Organized Health Care Education/Training Program; EMERGENCY PHYSICIAN Emergency Medicine; FAMILY PHYSICIAN Student in an Organized Health Care Education/Training Program
PROC: 0QS604Z Reposition Right Upper Femur with Internal Fixation Device, Open Approach (ICD-10-PCS; 2023-09-04)
PROC: 30233N1 Transfusion of Nonautologous Red Blood Cells into Peripheral Vein, Percutaneous Approach (ICD-10-PCS; 2023-09-04)
DX: M80.851A Other osteoporosis with current pathological fracture, right femur, initial encounter for fracture (principal); B02.30 Zoster ocular disease, unspecified; C90.00 Multiple myeloma not having achieved remission; C64.9 Malignant neoplasm of unspecified kidney, except renal pelvis; I50.32 Chronic diastolic (congestive) heart failure; I13.0 Hypertensive heart and chronic kidney disease with heart failure and stage 1 through stage 4 chronic kidney disease, or unspecified chronic kidney disease; N17.9 Acute kidney failure, unspecified; E87.20 Acidosis, unspecified; E87.1 Hypo-osmolality and hyponatremia; D62 Acute posthemorrhagic anemia; S72.21XA Displaced subtrochanteric fracture of right femur, initial encounter for closed fracture; E03.9 Hypothyroidism, unspecified; N18.30 Chronic kidney disease, stage 3 unspecified; I48.0 Paroxysmal atrial fibrillation; D63.8 Anemia in other chronic diseases classified elsewhere; Z79.01 Long term (current) use of anticoagulants; E87.5 Hyperkalemia; K59.00 Constipation, unspecified; D53.9 Nutritional anemia, unspecified
CPT/HCPCS: 73502; 73552; 73610; 73630; 74018; 76000; 80048; 80053; 82040; 82247; 82607; 82784; 82962; 83010; 83521; 83540; 83550; 83615; 83735; 83921; 84100; 84132; 84155; 84165; 85014; 85018; 85025; 85027; 85045; 85610; 85730; 86334; 86850; 86900; 86901; 86920; 87324; 87449; 93005; 96374; 96375; 97116; 97162; 97167; 97530; 97535; 99284; C1713; C1769; P9016

== ENCOUNTER → 2023-10-05 13:03 | Outpatient (REF) | payer MEDICARE, OTHER, SELFPAY ==
[2023-10-05 17:14] LABS: % Basophils 0.1 % (0-2); % Eosinophils 0.3 % (0-6); % Immature Granulocytes 0.3 % (0-0.5); % Lymphocytes 32.4 % (20.5-51.1); % Neutrophils 57.9 % (42.2-75.2); Absolute Lymphocytes 2.2 10^3/uL (1.2-3.4); Absolute Monocytes 0.6 10^3/uL (0.1-0.6); Absolute Neutrophils 3.9 10^3/uL (1.4-6.5); Hemoglobin 8.7 g/dL (12.0-16.0); Mean Corp Hgb Conc. 32.2 g/dL (33.0-37.0); Mean Corpuscular Hgb 34.1 pg (27.0-31.0); Mean Corpuscular Volume 105.9 fL (81.0-99.0); Mean Platelet Volume 9.9 fL (7.4-10.4); Nucleated Red Blood Cells % 0 %; Platelet Count 309 10^3/uL (130-400); Red Blood Cell Count 2.55 10^6/uL (4.20-5.40); Red Cell Dist. Width 18.4 % (11.5-14.5); White Blood Cell Count 6.7 10^3/uL (4.8-10.8)
[2023-10-05 17:25] LABS: Erythrocyte Sed Rate 24 mm/hour (0-20)
[2023-10-05 17:36] LABS: ALT (SGPT) 30 U/L (0-35); AST (SGOT) 30 U/L (14-36); Albumin 4.5 g/dl (3.5-5.0); Alkaline Phosphatase 215 U/L (38-126); Blood Urea Nitrogen 34 mg/dl (7-17); Calcium 9.7 mg/dl (8.4-10.2); Carbon Dioxide 18 mmol/L (22-30); Chloride 104 mmol/L (98-107); Glucose 86 mg/dl (70-99); Sodium 132 mmol/L (135-145); Total Bilirubin 0.6 mg/dl (0.2-1.3); Total Protein 9.2 g/dl (6.3-8.2); eGFR 35.96
[2023-10-05 18:24] LABS: Vitamin B12 952 pg/ml (239-931)
== END ==
LOC: CLAB 13:03
PROVIDERS: ATTENDING PHYSICIAN Student in an Organized Health Care Education/Training Program
DX: Z08 Encounter for follow-up examination after completed treatment for malignant neoplasm (principal); N17.9 Acute kidney failure, unspecified; D64.9 Anemia, unspecified; E53.8 Deficiency of other specified B group vitamins; M25.551 Pain in right hip
CPT/HCPCS: 36415; 80053; 82607; 85025; 85652